=== PATIENT | female | born 1975 | race Caucasian/White ===

== ENCOUNTER → 2017-01-08 | Outpatient (CLI) | payer OTHER ==
[2017-01-08 16:07] LABS: HEMATOCRIT 36.5 % (36.0-47.0); HEMOGLOBIN 11.7 g/dL (12.0-15.5); HGB HCT DIFFERENCE -1.4; MEAN CORPUSCULAR HEMOGLOBIN 27.6 pg (27.0-33.4); MEAN CORPUSCULAR HGB CONC 32.1 g/dL (32.0-36.0); MEAN CORPUSCULAR VOLUME 86 fl (80-97); RED BLOOD COUNT 4.24 10^6/uL (3.72-5.28); RED CELL DISTRIBUTION WIDTH 15.4 % (11.5-14.0)
[2017-01-08 16:54] LABS: ALANINE AMINOTRANSFERASE 21 U/L (9-52); ALBUMIN 4.9 g/dL (3.5-5.0); ALKALINE PHOSPHATASE 66 U/L (38-126); ANION GAP 19 (5-19); ASPARTATE AMINO TRANSFERASE 20 U/L (14-36); BILIRUBIN,DIRECT 0.4 mg/dL (0.0-0.4); BILIRUBIN,TOTAL 0.7 mg/dL (0.2-1.3); BLOOD UREA NITROGEN 16 mg/dL (7-20); CALCIUM 9.3 mg/dL (8.4-10.2); CARBON DIOXIDE 21 mmol/L (22-30); CHLORIDE 107 mmol/L (98-107); CREATININE RESULT 0.57 mg/dL (0.52-1.25); GLUCOSE 88 mg/dL (75-110); LIPASE 191.8 U/L (23-300); POTASSIUM 3.9 mmol/L (3.6-5.0); SODIUM 147.1 mmol/L (137-145); TOTAL PROTEIN 8.3 g/dL (6.3-8.2)
== END ==
LOC: OD 15:03
PROVIDERS: ATTEND Obstetrics & Gynecology
DX: K91.3 Postprocedural intestinal obstruction (principal); R11.2 Nausea with vomiting, unspecified; E20.9 Hypoparathyroidism, unspecified
CPT/HCPCS: 36415; 80053; 83690; 84443; 85027

== ENCOUNTER → 2017-01-25 | Outpatient (CLI) | payer OTHER ==
[2017-01-25 18:41] LABS: HEMATOCRIT 36.4 % (36.0-47.0); HEMOGLOBIN 11.9 g/dL (12.0-15.5); HGB HCT DIFFERENCE -0.7; MEAN CORPUSCULAR HEMOGLOBIN 27.2 pg (27.0-33.4); MEAN CORPUSCULAR HGB CONC 32.6 g/dL (32.0-36.0); MEAN CORPUSCULAR VOLUME 84 fl (80-97); RED BLOOD COUNT 4.36 10^6/uL (3.72-5.28); WHITE BLOOD COUNT 5.2 10^3/uL (4.0-10.5)
[2017-01-25 19:07] LABS: ALANINE AMINOTRANSFERASE 24 U/L (9-52); ALBUMIN 4.7 g/dL (3.5-5.0); ALKALINE PHOSPHATASE 60 U/L (38-126); ANION GAP 16 (5-19); ASPARTATE AMINO TRANSFERASE 22 U/L (14-36); BILIRUBIN,DIRECT 0.4 mg/dL (0.0-0.4); BILIRUBIN,TOTAL 0.7 mg/dL (0.2-1.3); BLOOD UREA NITROGEN 9 mg/dL (7-20); CALCIUM 9.6 mg/dL (8.4-10.2); CARBON DIOXIDE 27 mmol/L (22-30); CHLORIDE 102 mmol/L (98-107); CREATININE RESULT 0.82 mg/dL (0.52-1.25); GLUCOSE 77 mg/dL (75-110); POTASSIUM 4.1 mmol/L (3.6-5.0); SODIUM 145.4 mmol/L (137-145); TOTAL PROTEIN 7.8 g/dL (6.3-8.2)
== END ==
LOC: OD 17:17
PROVIDERS: ATTEND Obstetrics & Gynecology
DX: K91.3 Postprocedural intestinal obstruction (principal); E89.0 Postprocedural hypothyroidism
CPT/HCPCS: 36415; 80053; 84443; 85027

== ENCOUNTER → 2017-03-21 | Outpatient (CLI) | payer OTHER ==
[2017-03-21 14:24] LABS: HEMATOCRIT 36.5 % (36.0-47.0); HEMOGLOBIN 11.9 g/dL (12.0-15.5); HGB HCT DIFFERENCE -0.8; MEAN CORPUSCULAR HEMOGLOBIN 28.6 pg (27.0-33.4); MEAN CORPUSCULAR HGB CONC 32.5 g/dL (32.0-36.0); MEAN CORPUSCULAR VOLUME 88 fl (80-97); RED BLOOD COUNT 4.14 10^6/uL (3.72-5.28); RED CELL DISTRIBUTION WIDTH 19.7 % (11.5-14.0)
[2017-03-21 14:47] LABS: ALANINE AMINOTRANSFERASE 26 U/L (9-52); ALBUMIN 4.2 g/dL (3.5-5.0); ALKALINE PHOSPHATASE 48 U/L (38-126); ANION GAP 10 (5-19); ASPARTATE AMINO TRANSFERASE 25 U/L (14-36); BILIRUBIN,DIRECT 0.2 mg/dL (0.0-0.4); BILIRUBIN,TOTAL 0.5 mg/dL (0.2-1.3); BLOOD UREA NITROGEN 13 mg/dL (7-20); CALCIUM 9.4 mg/dL (8.4-10.2); CARBON DIOXIDE 29 mmol/L (22-30); CHLORIDE 101 mmol/L (98-107); CREATININE RESULT 0.78 mg/dL (0.52-1.25); GLUCOSE 69 mg/dL (75-110); POTASSIUM 4.5 mmol/L (3.6-5.0); SODIUM 140.1 mmol/L (137-145); TOTAL PROTEIN 7.4 g/dL (6.3-8.2)
== END ==
LOC: OD 13:16
PROVIDERS: ATTEND Obstetrics & Gynecology
DX: Z98.84 Bariatric surgery status (principal); E03.9 Hypothyroidism, unspecified; E20.9 Hypoparathyroidism, unspecified
CPT/HCPCS: 36415; 80053; 84443; 85027

== ENCOUNTER 2017-04-10 11:06 | Emergency (ER) | payer OTHER ==
[2017-04-10] MEDS ORDERED: LIDOCAINE 5% (700 MG) TRANSDERMAL ADH..PATCH TP ONE (11:36)
[2017-04-10] MEDS: NORMAL SALINE 1000 ML 1,000 ML IV PRN ×2 (12:39→13:58)
[2017-04-10 13:37] LABS: ABSOLUTE EOSINOPHILS # (AUTO) 0.2 10^3/uL (0.0-0.6); ABSOLUTE LYMPHOCYTES (AUTO) 1.7 10^3/uL (0.5-4.7); ABSOLUTE MONOCYTES (AUTO) 0.4 10^3/uL (0.1-1.4); BASOPHILS % (AUTO) 0.4 % (0-2); EOSINOPHILS % (AUTO) 3.7 % (0-6); HEMATOCRIT 36.6 % (36.0-47.0); HEMOGLOBIN 11.6 g/dL (12.0-15.5); HGB HCT DIFFERENCE -1.8; LYMPHOCYTES % (AUTO) 32.1 % (13-45); MEAN CORPUSCULAR HEMOGLOBIN 29.5 pg (27.0-33.4); MEAN CORPUSCULAR HGB CONC 31.8 g/dL (32.0-36.0); MONOCYTES % (AUTO) 7.3 % (3-13); RED BLOOD COUNT 3.93 10^6/uL (3.72-5.28); RED CELL DISTRIBUTION WIDTH 18.8 % (11.5-14.0); SEGMENTED NEUTROPHILS % (AUTO) 56.5 % (42-78); WHITE BLOOD COUNT 5.4 10^3/uL (4.0-10.5)
[2017-04-10 13:39] LABS: MEAN CORPUSCULAR VOLUME 93 fl (80-97)
[2017-04-10 13:44] LABS: ALANINE AMINOTRANSFERASE 31 U/L (9-52); ALBUMIN 3.9 g/dL (3.5-5.0); ALKALINE PHOSPHATASE 48 U/L (38-126); ANION GAP 8 (5-19); ASPARTATE AMINO TRANSFERASE 14 U/L (14-36); BILIRUBIN,DIRECT 0.4 mg/dL (0.0-0.4); BILIRUBIN,TOTAL 0.6 mg/dL (0.2-1.3); BLOOD UREA NITROGEN 16 mg/dL (7-20); CALCIUM 8.7 mg/dL (8.4-10.2); CARBON DIOXIDE 26 mmol/L (22-30); CHLORIDE 108 mmol/L (98-107); CREATINE KINASE 43 U/L (30-135); CREATININE RESULT 0.94 mg/dL (0.52-1.25); GLUCOSE 82 mg/dL (75-110); MAGNESIUM 1.7 mg/dL (1.6-2.3); POTASSIUM 3.8 mmol/L (3.6-5.0); SODIUM 142.1 mmol/L (137-145); TOTAL PROTEIN 6.8 g/dL (6.3-8.2)
[2017-04-10 14:01] LABS: APPEARANCE,URINE CLEAR; BILIRUBIN,URINE NEGATIVE (NEGATIVE); GLUCOSE, URINE NEGATIVE (NEGATIVE); KETONES,URINE TRACE mg/dL (NEGATIVE); LEUKOCYTE ESTERASE,URINE NEGATIVE (NEGATIVE); NITRITE,URINE NEGATIVE (NEGATIVE); PROTEIN,URINE NEGATIVE (NEGATIVE); URINE SPECIFIC GRAVITY 1.008; UROBILINOGEN,URINE NEGATIVE mg/dL (<2.0)
[2017-04-10 14:13] LABS: THYROID STIMULATING HORMONE 2.49 uIU/mL (0.47-4.68)
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
[2017-04-10 14:55] LABS: URINE BARBITURATES SCREEN NEGATIVE; URINE METHADONE SCREEN NEGATIVE; URINE OPIATES LOW NEGATIVE; URINE PHENCYCLIDINE SCREEN NEGATIVE
[2017-04-10 15:14] VITALS: BP 169/115
--- NOTE | 2017-04-10 19:02 | EKG REPORT ---
SEVERITY:- BORDERLINE ECG - SINUS RHYTHM POOR R PROGRESSION ANYTERIOR LEADS. : Confirmed by: Geo Leonard MD 10-Apr-2017 19:01:56
== END 2017-04-10 14:54 | disposition home or self-care (01) ==
LOC: ER 11:06
DX: R20.9 Unspecified disturbances of skin sensation (principal); M25.512 Pain in left shoulder; E03.9 Hypothyroidism, unspecified; Z90.49 Acquired absence of other specified parts of digestive tract; Z90.710 Acquired absence of both cervix and uterus; Z88.2 Allergy status to sulfonamides; Z88.6 Allergy status to analgesic agent
CPT/HCPCS: 93005; 99285; 36415; 87086; 84439; 82550; 84702; 83735; 84443; 85025; 80053; 81001; 80307; 93010; L3650; J7030

== ENCOUNTER 2017-04-18 09:43 | Day surgery (SDC) | payer OTHER ==
[2017-04-13 08:52] LABS: APPEARANCE,URINE CLEAR; BILIRUBIN,URINE NEGATIVE (NEGATIVE); GLUCOSE, URINE NEGATIVE (NEGATIVE); KETONES,URINE NEGATIVE (NEGATIVE); LEUKOCYTE ESTERASE,URINE NEGATIVE (NEGATIVE); NITRITE,URINE NEGATIVE (NEGATIVE); PROTEIN,URINE NEGATIVE (NEGATIVE); URINE SPECIFIC GRAVITY 1.012; UROBILINOGEN,URINE NEGATIVE mg/dL (<2.0)
[2017-04-13 08:57] LABS: HEMATOCRIT 37.8 % (36.0-47.0); HGB HCT DIFFERENCE -1.8; MEAN CORPUSCULAR HEMOGLOBIN 29.5 pg (27.0-33.4); MEAN CORPUSCULAR HGB CONC 31.8 g/dL (32.0-36.0); MEAN CORPUSCULAR VOLUME 93 fl (80-97); RED BLOOD COUNT 4.08 10^6/uL (3.72-5.28)
[2017-04-13 08:58] LABS: ANION GAP 12 (5-19); BLOOD UREA NITROGEN 13 mg/dL (7-20); CALCIUM 8.5 mg/dL (8.4-10.2); CARBON DIOXIDE 23 mmol/L (22-30); CHLORIDE 108 mmol/L (98-107); GLUCOSE 83 mg/dL (75-110); POTASSIUM 4.1 mmol/L (3.6-5.0); SODIUM 142.5 mmol/L (137-145)
[2017-04-13 09:29] LABS: ANISOCYTOSIS 2+; BASOPHILS % (MANUAL) 0 % (0-2); EOSINOPHILS % (MANUAL) 6 % (0-6); HYPOCHROMASIA SLIGHT; LYMPHOCYTES % (MANUAL) 45 % (13-45); NUCLEATED RED BLOOD CELLS 1 /100 WBC (0); OVALOCYTES 2+; PLATELET CLUMPS PRESENT; POIKILOCYTOSIS 2+; POLYCHROMASIA SLIGHT; ROULEAUX 1+; TOTAL CELLS COUNTED 100; TOXIC GRANULATION 1+
--- NOTE | 2017-04-13 10:17 | RADIOLOGY REPORT (SQ) ---
EXAM DESCRIPTION: CHEST PA/LATERAL COMPLETED DATE/TIME: 04/13/2017 9:57 am REASON FOR STUDY: PRE-OP COMPARISON: 07/19/2016 EXAM PARAMETERS: NUMBER OF VIEWS: two views TECHNIQUE: Digital Frontal and Lateral radiographic views of the chest acquired. RADIATION DOSE: NA LIMITATIONS: none FINDINGS: LUNGS AND PLEURA: No opacities, masses or pneumothorax. No pleural effusion. MEDIASTINUM AND HILAR STRUCTURES: No masses or contour abnormalities. HEART AND VASCULAR STRUCTURES: Heart normal size. No evidence for failure. BONES: No acute findings. HARDWARE: None in the chest. OTHER: No other significant finding. IMPRESSION: NO SIGNIFICANT RADIOGRAPHIC FINDING IN THE CHEST. TECHNICAL DOCUMENTATION: JOB ID: [id number] [employer]- All Rights Reserved
--- NOTE | 2017-04-13 20:14 | EKG REPORT ---
SEVERITY:- NORMAL ECG - SINUS RHYTHM : Confirmed by: Geo Leonard MD 13-Apr-2017 20:14:41
[~2017-04-18 09:43] MED LIST: CEFAZOLIN 2 GM/D5W RTU 2 GM/50 ML RTUPB IV PRN; LACTATED RINGERS 1000 ML IV PRN; LIDOCAINE 0.5% INJ-PF (5 MG/ML) 50 ML SDV SUBCUT PRN
[2017-04-18] MEDS ORDERED: BUPIVACAINE HCL 0.5%-EPI 1:200000 INJ/PF 30 ML VIAL ONE (10:39)
[2017-04-18] MEDS ORDERED: FAMOTIDINE INJ/PF 20 MG/2 ML SDV IV ONE (10:40)
[2017-04-18] MEDS ORDERED: FENTANYL CITRATE INJ/PF 250 MCG/5 ML AMPULE ONE (12:09)
[2017-04-18] MEDS ORDERED: PROPOFOL INJ 200 MG/20 ML VIAL IV ONE (12:10)
[2017-04-18] MEDS ORDERED: MIDAZOLAM 2 MG/2 ML INJ ONE (12:10)
[2017-04-18] MEDS ORDERED: IBUPROFEN INJ 800 MG/8 ML VIAL IV ONE (12:11)
[2017-04-18] MEDS ORDERED: HYDROMORPHONE HCL INJ/PF 2 MG/ML AMPULE ONE (12:11)
[2017-04-18] MEDS ORDERED: DIPHENHYDRAMINE HCL 50 MG/ML VIAL IV PRN (13:01)
[2017-04-18] MEDS ORDERED: OXYCODONE-ACETAMINOPHEN 5-325 MG TABLET PO PRN ×2 (13:01)
[2017-04-18] MEDS ORDERED: FENTANYL CITRATE INJ/PF 100 MCG/2 ML AMPUL IV PRN ×3 (13:01)
[2017-04-18] MEDS ORDERED: MEPERIDINE HCL/PF INJ 25 MG/1 ML DISP.SYRIN IV PRN (13:01)
[2017-04-18] MEDS ORDERED: PROMETHAZINE HCL INJ 25 MG/1 ML VIAL IV PRN (13:01)
--- NOTE | 2017-04-18 13:14 | Operative Report ---
Operative Report DATE OF SURGERY: 04/18/17 PREOPERATIVE DIAGNOSIS: Left rotator cuff tear OPERATION: Left acromioplasty and left rotator cuff repair SURGEON: GARRETT MEEHAN ANESTHESIA: GA TISSUE REMOVED OR ALTERED: Bone and soft tissue to pathology ESTIMATED BLOOD LOSS: 75 PROCEDURE: Patient beachchair position on the operating table the left upper extremity and forequarter prepped and draped in sterile fashion. A 1 cm longitudinal incision was made at the junction of the middle and anterior thirds of the deltoid and sharp dissection was carried incision down to the fascia. The fascia is divided the underlying deltoid and spread in the direction of its fibers. The acromion is visualized and a an acromioplasty was performed with an oscillating saw. Subsequently the subacromial bursa is debrided sharply. The underlying rotator cuff tears easily identified. The edges are debrided. A 5.5 mm suture anchor was then placed into the landing zone for the rotator cuff and the 4 sutures that emanate from it are used to repair the rotator cuff. This point the wound is irrigated. Hemostasis obtained with electrocautery. Closed in layers using Vicryl followed by vince. A sterile compressive dressing and shoulder immobilizer applied and the patient's return to the PACU in satisfactory condition.
[2017-04-18] MEDS: FENTANYL CITRATE INJ/PF 100 MCG/2 ML AMPUL ONE ×2 (13:40→13:47)
[2017-04-18] MEDS ORDERED: DEXAMETHASONE SOD PHOSPHATE INJ 4 MG/1 ML VIAL ONE (14:37)
[2017-04-18] MEDS ORDERED: SUCCINYLCHOLINE CHLORIDE INJ 200 MG/10 ML VIAL ONE (14:37)
[2017-04-18] MEDS ORDERED: ONDANSETRON HCL INJ/PF 4 MG/2 ML SDV ONE (14:37)
[2017-04-18] MEDS ORDERED: ONDANSETRON HCL INJ/PF 4 MG/2 ML SDV IV PRN (15:26)
[2017-04-18] MEDS ORDERED: OXYCODONE HCL IR 5 MG TABLET PO PRN ×2 (15:26→16:00)
[2017-04-18] MEDS ORDERED: ZOLPIDEM TARTRATE PO PRN (15:27)
[2017-04-18] MEDS ORDERED: ONDANSETRON 4 MG TAB.RAPDIS PO PRN (15:39)
[2017-04-18] MEDS ORDERED: ZOLPIDEM TARTRATE 5 MG TABLET PO PRN (15:54)
[2017-04-18 17:56] VITALS: BP 173/102
[2017-04-18] MEDS ORDERED: CALCIUM ACETATE 667 MG CAPSULE PO SCH (18:00)
[2017-04-18] MEDS ORDERED: CALCIUM ACETATE 667 MG PO SCH (18:00)
[2017-04-18] MEDS ORDERED: CALCITRIOL 0.25 MCG CAPSULE PO SCH (18:00)
[2017-04-18] MEDS ORDERED: AMITRIPTYLINE HCL 25 MG TABLET PO SCH (22:00)
[2017-04-18] MEDS ORDERED: QUETIAPINE FUMARATE 25 MG TABLET PO SCH (22:00)
[2017-04-19] MEDS ORDERED: LEVOTHYROXINE SODIUM 0.1 MG TABLET PO SCH (08:00)
[2017-04-19] MEDS ORDERED: LEVOTHYROXINE SODIUM 0.075 MG TABLET PO SCH (08:00)
[2017-04-19] MEDS ORDERED: (PENDING PHARMACY ID) (Levothyroxine Sodium [Synthroid] 175 MCG) PO SCH (10:00)
== END 2017-04-18 17:40 | disposition home or self-care (01) ==
LOC: OROUT 09:43 → 4W 15:15 → OROUT 17:40
PROVIDERS: ATTEND Orthopaedic Surgery
PROC: 0LQ20ZZ Repair Left Shoulder Tendon, Open Approach (ICD-10-PCS; principal; 2017-04-18 11:45)
DX: M75.102 Unspecified rotator cuff tear or rupture of left shoulder, not specified as traumatic (principal); M25.512 Pain in left shoulder; E06.3 Autoimmune thyroiditis; F31.9 Bipolar disorder, unspecified; G89.29 Other chronic pain; E89.0 Postprocedural hypothyroidism; F17.210 Nicotine dependence, cigarettes, uncomplicated; I10 Essential (primary) hypertension; Z86.14 Personal history of Methicillin resistant Staphylococcus aureus infection; Z79.899 Other long term (current) drug therapy; Z88.5 Allergy status to narcotic agent; Z88.8 Allergy status to other drugs, medicaments and biological substances; Z88.2 Allergy status to sulfonamides
CPT/HCPCS: 93005; 36415; 85025; 80048; 81001; 88304 ×2; 71020; 93010; 23410; L3650; C1713; J2250; J3490 ×2; J1100; S0119; J3010 ×2; J1170; J0330; J2405; J2704; S0028; J0690; J1741; 1630

== ENCOUNTER → 2017-05-11 | Outpatient (CLI) | payer OTHER ==
[2017-05-11 13:22] LABS: HEMOGLOBIN 11.8 g/dL (12.0-15.5); HGB HCT DIFFERENCE 0.4; MEAN CORPUSCULAR HEMOGLOBIN 31.4 pg (27.0-33.4); MEAN CORPUSCULAR HGB CONC 33.7 g/dL (32.0-36.0); MEAN CORPUSCULAR VOLUME 93 fl (80-97); RED BLOOD COUNT 3.76 10^6/uL (3.72-5.28); RED CELL DISTRIBUTION WIDTH 15.6 % (11.5-14.0); WHITE BLOOD COUNT 6.2 10^3/uL (4.0-10.5)
[2017-05-11 13:44] LABS: ALANINE AMINOTRANSFERASE 28 U/L (9-52); ALBUMIN 4.1 g/dL (3.5-5.0); ALKALINE PHOSPHATASE 58 U/L (38-126); ANION GAP 11 (5-19); ASPARTATE AMINO TRANSFERASE 19 U/L (14-36); BILIRUBIN,DIRECT 0.4 mg/dL (0.0-0.4); BILIRUBIN,TOTAL 0.6 mg/dL (0.2-1.3); BLOOD UREA NITROGEN 10 mg/dL (7-20); CALCIUM 8.6 mg/dL (8.4-10.2); CARBON DIOXIDE 24 mmol/L (22-30); CHLORIDE 101 mmol/L (98-107); CREATININE RESULT 0.72 mg/dL (0.52-1.25); GLUCOSE 81 mg/dL (75-110); SODIUM 135.9 mmol/L (137-145); TOTAL PROTEIN 6.8 g/dL (6.3-8.2)
== END ==
LOC: OD 12:47
PROVIDERS: ATTEND Obstetrics & Gynecology
DX: E03.9 Hypothyroidism, unspecified (principal); E20.9 Hypoparathyroidism, unspecified
CPT/HCPCS: 36415; 80053; 84443; 85027

== ENCOUNTER → 2017-05-15 | Outpatient (CLI) | payer OTHER | LOC: OD 17:10 | PROVIDERS: ATTEND Obstetrics & Gynecology | DX: K29.70 Gastritis, unspecified, without bleeding (principal) | CPT/HCPCS: 36415; 86677 ==

== ENCOUNTER → 2017-05-28 | Outpatient (CLI) | payer OTHER ==
[2017-05-28 13:41] LABS: HEMATOCRIT 34.5 % (36.0-47.0); HEMOGLOBIN 11.8 g/dL (12.0-15.5); HGB HCT DIFFERENCE 0.9; MEAN CORPUSCULAR HEMOGLOBIN 31.9 pg (27.0-33.4); MEAN CORPUSCULAR HGB CONC 34.1 g/dL (32.0-36.0); MEAN CORPUSCULAR VOLUME 94 fl (80-97); RED BLOOD COUNT 3.68 10^6/uL (3.72-5.28)
[2017-05-28 14:05] LABS: ALANINE AMINOTRANSFERASE 23 U/L (9-52); ALBUMIN 3.9 g/dL (3.5-5.0); ALKALINE PHOSPHATASE 39 U/L (38-126); ANION GAP 10 (5-19); ASPARTATE AMINO TRANSFERASE 21 U/L (14-36); BILIRUBIN,DIRECT 0.3 mg/dL (0.0-0.4); BILIRUBIN,TOTAL 0.4 mg/dL (0.2-1.3); BLOOD UREA NITROGEN 11 mg/dL (7-20); CALCIUM 8.2 mg/dL (8.4-10.2); CARBON DIOXIDE 29 mmol/L (22-30); CHLORIDE 103 mmol/L (98-107); CREATININE RESULT 0.71 mg/dL (0.52-1.25); GLUCOSE 69 mg/dL (75-110); POTASSIUM 4.1 mmol/L (3.6-5.0); SODIUM 142.2 mmol/L (137-145); TOTAL PROTEIN 6.2 g/dL (6.3-8.2)
== END ==
LOC: OD 11:59
PROVIDERS: ATTEND Obstetrics & Gynecology
DX: I10 Essential (primary) hypertension (principal); E07.9 Disorder of thyroid, unspecified; E89.0 Postprocedural hypothyroidism; Z98.84 Bariatric surgery status
CPT/HCPCS: 36415; 80053; 84443; 85027

== ENCOUNTER → 2017-06-13 | Outpatient (CLI) | payer OTHER ==
[2017-06-13 13:34] LABS: ALANINE AMINOTRANSFERASE 22 U/L (9-52); ALBUMIN 4.4 g/dL (3.5-5.0); ALKALINE PHOSPHATASE 47 U/L (38-126); ANION GAP 10 (5-19); ASPARTATE AMINO TRANSFERASE 21 U/L (14-36); BILIRUBIN,DIRECT 0.3 mg/dL (0.0-0.4); BILIRUBIN,TOTAL 0.4 mg/dL (0.2-1.3); BLOOD UREA NITROGEN 10 mg/dL (7-20); CALCIUM 9.2 mg/dL (8.4-10.2); CARBON DIOXIDE 24 mmol/L (22-30); CHLORIDE 108 mmol/L (98-107); CREATININE RESULT 0.69 mg/dL (0.52-1.25); GLUCOSE 86 mg/dL (75-110); HEMOGLOBIN 12.7 g/dL (12.0-15.5); HGB HCT DIFFERENCE 3.1; MEAN CORPUSCULAR HEMOGLOBIN 33.8 pg (27.0-33.4); MEAN CORPUSCULAR HGB CONC 36.4 g/dL (32.0-36.0); MEAN CORPUSCULAR VOLUME 93 fl (80-97); RED BLOOD COUNT 3.78 10^6/uL (3.72-5.28); RED CELL DISTRIBUTION WIDTH 13.8 % (11.5-14.0); SODIUM 142.4 mmol/L (137-145); TOTAL PROTEIN 6.9 g/dL (6.3-8.2); WHITE BLOOD COUNT 3.9 10^3/uL (4.0-10.5)
== END ==
LOC: OD 12:08
PROVIDERS: ATTEND Obstetrics & Gynecology
DX: I10 Essential (primary) hypertension (principal); E07.9 Disorder of thyroid, unspecified; Z98.84 Bariatric surgery status; E89.0 Postprocedural hypothyroidism
CPT/HCPCS: 36415; 80053; 84443; 85027

== ENCOUNTER → 2017-08-16 | Outpatient (CLI) | payer OTHER ==
[2017-08-16 19:53] LABS: ALANINE AMINOTRANSFERASE 30 U/L (9-52); ALBUMIN 4.5 g/dL (3.5-5.0); ALKALINE PHOSPHATASE 38 U/L (38-126); ANION GAP 13 (5-19); ASPARTATE AMINO TRANSFERASE 24 U/L (14-36); BILIRUBIN,DIRECT 0.3 mg/dL (0.0-0.4); BILIRUBIN,TOTAL 0.5 mg/dL (0.2-1.3); BLOOD UREA NITROGEN 16 mg/dL (7-20); CALCIUM 8.9 mg/dL (8.4-10.2); CARBON DIOXIDE 24 mmol/L (22-30); CHLORIDE 105 mmol/L (98-107); CREATININE RESULT 0.77 mg/dL (0.52-1.25); GLUCOSE 77 mg/dL (75-110); POTASSIUM 3.9 mmol/L (3.6-5.0); SODIUM 141.8 mmol/L (137-145); TOTAL PROTEIN 6.9 g/dL (6.3-8.2)
== END ==
LOC: OD 18:07
PROVIDERS: ATTEND Obstetrics & Gynecology
DX: E89.0 Postprocedural hypothyroidism (principal); I10 Essential (primary) hypertension; E07.9 Disorder of thyroid, unspecified; Z98.84 Bariatric surgery status
CPT/HCPCS: 36415; 80053; 84443

== ENCOUNTER → 2017-10-08 | Outpatient (CLI) | payer OTHER ==
[2017-10-08 12:07] LABS: ABSOLUTE EOSINOPHILS # (AUTO) 0.1 10^3/uL (0.0-0.6); ABSOLUTE LYMPHOCYTES (AUTO) 0.9 10^3/uL (0.5-4.7); ABSOLUTE MONOCYTES (AUTO) 0.3 10^3/uL (0.1-1.4); ABSOLUTE NEUT (AUTO) 3.2 10^3/uL (1.7-8.2); BASOPHILS % (AUTO) 0.2 % (0-2); EOSINOPHILS % (AUTO) 2.3 % (0-6); HEMATOCRIT 42.3 % (36.0-47.0); HEMOGLOBIN 14.6 g/dL (12.0-15.5); LYMPHOCYTES % (AUTO) 19.6 % (13-45); MEAN CORPUSCULAR HGB CONC 34.5 g/dL (32.0-36.0); MEAN CORPUSCULAR VOLUME 96 fl (80-97); MONOCYTES % (AUTO) 6.8 % (3-13); PLATELET COUNT 211 10^3/uL (150-450); RED BLOOD COUNT 4.43 10^6/uL (3.72-5.28); RED CELL DISTRIBUTION WIDTH 13.6 % (11.5-14.0); SEGMENTED NEUTROPHILS % (AUTO) 71.1 % (42-78); TOTAL CELLS COUNTED % (AUTO) 100 %; WHITE BLOOD COUNT 4.6 10^3/uL (4.0-10.5)
[2017-10-08 12:17] LABS: ALANINE AMINOTRANSFERASE 27 U/L (9-52); ALKALINE PHOSPHATASE 58 U/L (38-126); ANION GAP 13 (5-19); ASPARTATE AMINO TRANSFERASE 22 U/L (14-36); BILIRUBIN,DIRECT 0.3 mg/dL (0.0-0.4); BILIRUBIN,TOTAL 0.5 mg/dL (0.2-1.3); BLOOD UREA NITROGEN 6 mg/dL (7-20); CALCIUM 9.6 mg/dL (8.4-10.2); CARBON DIOXIDE 31 mmol/L (22-30); CHLORIDE 103 mmol/L (98-107); GLUCOSE 95 mg/dL (75-110); POTASSIUM 3.7 mmol/L (3.6-5.0); SODIUM 146.8 mmol/L (137-145)
--- NOTE | 2017-10-08 14:28 | RADIOLOGY REPORT (SQ) ---
EXAM DESCRIPTION: SHOULDER LEFT 2 OR MORE VIEWS COMPLETED DATE/TIME: 10/08/2017 12:06 pm REASON FOR STUDY: PAIN IN LEFT SHOULDER M25.512 PAIN IN LEFT SHOULDER COMPARISON: None. NUMBER OF VIEWS: Three view. TECHNIQUE: Internal rotation, external rotation, and Y view images acquired of the left shoulder. LIMITATIONS: None. FINDINGS: MINERALIZATION: Normal. BONES: No acute fracture or dislocation. No worrisome bone lesions. No significant osteophytes. GLENOHUMERAL JOINT: No significant findings. ACROMIOCLAVICULAR JOINT: No large osteophytes. SOFT TISSUES: No calcifications. VISUALIZED RIBS, SPINE, AND LUNG: No other significant finding. OTHER: No other significant finding. IMPRESSION: NEGATIVE STUDY OF THE LEFT SHOULDER. NO EXPLANATION FOR PAIN. TECHNICAL DOCUMENTATION: JOB ID: [id number] [employer]- All Rights Reserved
== END ==
LOC: OD 11:18
PROVIDERS: ATTEND Obstetrics & Gynecology
DX: M25.512 Pain in left shoulder (principal); E03.9 Hypothyroidism, unspecified; E20.9 Hypoparathyroidism, unspecified; K52.9 Noninfective gastroenteritis and colitis, unspecified
CPT/HCPCS: 36415; 80053; 84443; 85025

== ENCOUNTER → 2017-10-16 | Day surgery (SDC) | payer OTHER ==
[~2017-10-16] MED LIST changes: -CEFAZOLIN 2 GM/D5W RTU 2 GM/50 ML RTUPB IV PRN; -LACTATED RINGERS 1000 ML IV PRN; -LIDOCAINE 0.5% INJ-PF (5 MG/ML) 50 ML SDV SUBCUT PRN; +LIDOCAINE 1% INJ-PF (10 MG/ML) 30 ML SDV ONE
--- NOTE | 2017-10-16 13:47 | RADIOLOGY REPORT (SQ) ---
EXAM DESCRIPTION: ARTHRO SHOULDER INJECTION COMPLETED DATE/TIME: 10/16/2017 11:17 am REASON FOR STUDY: M75.122 COMPLETE ROTATR-CUFF TEAR/RUPTR OF LEFT SHOULDER, NOT TRAUMA M75.122 COMP LETE ROTATR-CUFF TEAR/RUPTR OF LEFT SHOULDER, NO COMPARISON: Left shoulder films 10/08/2014 FLUOROSCOPY TIME: 3 seconds 1 digital radiographic images saved to PACS. LIMITATIONS: None. PROCEDURE: Procedure, risks, benefits and alternatives explained to patient who then gave written co nsent. The posterior left shoulder was marked and a time out was called for correct procedure verific ation. Posterior entry site marked using fluoroscopic guidance. Shoulder prepped and draped using s terile technique. Local anesthesia achieved using 7 mL of 1% lidocaine injection. 22 gauge spinal n eedle introduced into the joint space under direct fluoroscopic visualization. Non-ionic contrast ins tilled to confirm intra-articular position. Dilute gadolinium solution then injected. Needle removed and entry site covered with sterile bandage. No immediate complications noted. TECHNIQUE: Digital images acquired during fluoroscopy and stored on PACS. Patient immediately take n to the MR suite for additional imaging. INJECTION LOCATION: Left posterior glenohumeral joint CONTRAST TYPE AND AMOUNT: 1 mL of Isovue-300 was injected to confirm intra-articular needle placement followed by 12 mL of dilute ProHance gadolinium for MR arthrogram IMPRESSION: SUCCESSFUL NEEDLE PLACEMENT AND INJECTION FOR LEFT SHOULDER MR ARTHROGRAM USING POSTERIO R APPROACH. COMMENT: Quality ID 145: Final reports for procedures using fluoroscopy that document radiation exp osure indices, or exposure time and number of fluorographic images (if radiation exposure indices are not available) TECHNICAL DOCUMENTATION: JOB ID: [id number] [employer]- All Rights Reserved
--- NOTE | 2017-10-16 14:18 | RADIOLOGY REPORT (SQ) ---
EXAM DESCRIPTION: MRI LT UPPER JOINT WITH COMPLETED DATE/TIME: 10/16/2017 12:17 pm REASON FOR STUDY: M75.122 COMPLETE ROTATR-CUFF TEAR/RUPTR OF LEFT SHOULDER, NOT TRAUMA M75.122 COMP LETE ROTATR-CUFF TEAR/RUPTR OF LEFT SHOULDER, NO COMPARISON: Left shoulder films TECHNIQUE: Left shoulder post arthrogram MRI images acquired and stored on PACS. Multiplanar imaging to include fat sensitive sequences such as T1, water sensitive sequences such as FST2/STIR, cartilag e sensitive sequences such as FSPD/gradient-echo sequences. LIMITATIONS: None. FINDINGS: BONE MARROW AND CORTEX: Minimal subcortical edema in the posterior aspect left humeral hea d greater tuberosity. JOINT OR BURSAL EFFUSION: Intra-articular gadolinium is present without leakage of contrast into the subacromial/ subdeltoid bursa. GLENO-HUMERAL ARTICULATION: Normal articulation. No subluxation. No cystic change. No osteophytes or cartilage loss. ACROMION AND AC JOINT: Type 2 acromion with mild acromioclavicular joint bony spurring and synovial thickening. This minimally flattens the superior edge of the supraspinatus muscle and tendon. ROTATOR CUFF AND INTERVAL: Remote prior repair of the distal infraspinatus tendon, with a screw ancho ring infraspinatus tendon on sagittal image 5. Remainder of the infraspinatus is been with high sign al along its undersurface from tendinopathy. Supraspinatus, subscapularis are intact. No rotator interval tear. No rotator interval thickening to suggest adhesive capsulitis. LABRUM AND BICEPS LABRAL COMPLEX: Intra-articular long head biceps tendon is normal in signal. The re is mild irregularity at its attachment to the labrum with a small superior labral tear, no paralab ral cyst. This is best shown on axial images 5-7, sagittal image 11 and coronal image 10. REMAINDER OF LABRUM AND IGHL : No gross tear or paralabral cyst formation. Labral evaluation is less than optimal without joint distention. No thickening of IGHL to suggest adhesive capsulitis. PERIARTICULAR AND ADJACENT SOFT TISSUES: No masses or abnormal nodes. OTHER: No other significant finding. IMPRESSION: Infraspinatus tendinopathy and old repair. Tiny superior labral tear at the intra-articular long head biceps tendon attachment Mild bony spurring and synovial overgrowth at the AC joint. TECHNICAL DOCUMENTATION: JOB ID: [id number] [employer]- All Rights Reserved
== END ==
LOC: RAD 10:22
PROVIDERS: ATTEND Orthopaedic Surgery
PROC: BP09ZZZ Plain Radiography of Left Shoulder (ICD-10-PCS; principal; 2017-10-16)
DX: M75.122 Complete rotator cuff tear or rupture of left shoulder, not specified as traumatic (principal); S43.432A Superior glenoid labrum lesion of left shoulder, initial encounter; X58.XXXA Exposure to other specified factors, initial encounter; M75.92 Shoulder lesion, unspecified, left shoulder
CPT/HCPCS: 73222; 77002; 23350; A9576; J3490

== ENCOUNTER → 2017-11-13 | Outpatient (CLI) | payer OTHER ==
[2017-11-13 16:05] LABS: ABSOLUTE EOSINOPHILS # (AUTO) 0.1 10^3/uL (0.0-0.6); ABSOLUTE MONOCYTES (AUTO) 0.3 10^3/uL (0.1-1.4); ABSOLUTE NEUT (AUTO) 2.3 10^3/uL (1.7-8.2); BASOPHILS % (AUTO) 0.6 % (0-2); EOSINOPHILS % (AUTO) 3.1 % (0-6); HEMATOCRIT 37.4 % (36.0-47.0); LYMPHOCYTES % (AUTO) 41.5 % (13-45); MEAN CORPUSCULAR HEMOGLOBIN 33.5 pg (27.0-33.4); MEAN CORPUSCULAR HGB CONC 34.8 g/dL (32.0-36.0); MEAN CORPUSCULAR VOLUME 96 fl (80-97); MONOCYTES % (AUTO) 6.5 % (3-13); PLATELET COUNT 226 10^3/uL (150-450); RED BLOOD COUNT 3.88 10^6/uL (3.72-5.28); RED CELL DISTRIBUTION WIDTH 12.9 % (11.5-14.0); SEGMENTED NEUTROPHILS % (AUTO) 48.3 % (42-78); TOTAL CELLS COUNTED % (AUTO) 100 %; WHITE BLOOD COUNT 4.7 10^3/uL (4.0-10.5)
[2017-11-13 16:21] LABS: ALANINE AMINOTRANSFERASE 15 U/L (9-52); ALKALINE PHOSPHATASE 38 U/L (38-126); ANION GAP 9 (5-19); ASPARTATE AMINO TRANSFERASE 19 U/L (14-36); BILIRUBIN,DIRECT 0.4 mg/dL (0.0-0.4); BILIRUBIN,TOTAL 0.5 mg/dL (0.2-1.3); BLOOD UREA NITROGEN 10 mg/dL (7-20); CALCIUM 8.4 mg/dL (8.4-10.2); CARBON DIOXIDE 25 mmol/L (22-30); CHLORIDE 105 mmol/L (98-107); GLUCOSE 108 mg/dL (75-110); POTASSIUM 4.1 mmol/L (3.6-5.0); SODIUM 139.2 mmol/L (137-145); TOTAL PROTEIN 6.4 g/dL (6.3-8.2)
== END ==
LOC: OD 14:28
PROVIDERS: ATTEND Obstetrics & Gynecology
DX: E83.51 Hypocalcemia (principal); D64.9 Anemia, unspecified; Z51.81 Encounter for therapeutic drug level monitoring; Z79.899 Other long term (current) drug therapy
CPT/HCPCS: 36415; 80053; 84443; 85025

== ENCOUNTER → 2018-01-05 | Outpatient (CLI) | payer OTHER ==
[2018-01-05 12:42] LABS: HEMATOCRIT 42.6 % (36.0-47.0); HEMOGLOBIN 14.7 g/dL (12.0-15.5); MEAN CORPUSCULAR HEMOGLOBIN 32.7 pg (27.0-33.4); MEAN CORPUSCULAR HGB CONC 34.6 g/dL (32.0-36.0); MEAN CORPUSCULAR VOLUME 95 fl (80-97); PLATELET COUNT 257 10^3/uL (150-450); RED BLOOD COUNT 4.51 10^6/uL (3.72-5.28); RED CELL DISTRIBUTION WIDTH 12.7 % (11.5-14.0); WHITE BLOOD COUNT 6.1 10^3/uL (4.0-10.5)
[2018-01-05 13:02] LABS: ALANINE AMINOTRANSFERASE 25 U/L (9-52); ALBUMIN 4.5 g/dL (3.5-5.0); ALKALINE PHOSPHATASE 36 U/L (38-126); ANION GAP 10 (5-19); ASPARTATE AMINO TRANSFERASE 24 U/L (14-36); BILIRUBIN,DIRECT 0.4 mg/dL (0.0-0.4); BILIRUBIN,TOTAL 0.7 mg/dL (0.2-1.3); BLOOD UREA NITROGEN 17 mg/dL (7-20); CALCIUM 9.6 mg/dL (8.4-10.2); CARBON DIOXIDE 25 mmol/L (22-30); CHLORIDE 102 mmol/L (98-107); GLUCOSE 89 mg/dL (75-110); POTASSIUM 4.9 mmol/L (3.6-5.0); SODIUM 137.2 mmol/L (137-145); TOTAL PROTEIN 7.3 g/dL (6.3-8.2)
== END ==
LOC: OD 12:00
PROVIDERS: ATTEND Obstetrics & Gynecology
DX: I10 Essential (primary) hypertension (principal); E07.9 Disorder of thyroid, unspecified; E89.0 Postprocedural hypothyroidism; Z98.84 Bariatric surgery status
CPT/HCPCS: 36415; 80053; 84443; 85027

== ENCOUNTER → 2018-02-04 | Outpatient (CLI) | payer OTHER ==
[2018-02-04 18:23] LABS: HEMATOCRIT 39.9 % (36.0-47.0); HEMOGLOBIN 13.5 g/dL (12.0-15.5); MEAN CORPUSCULAR HEMOGLOBIN 32.3 pg (27.0-33.4); MEAN CORPUSCULAR HGB CONC 33.9 g/dL (32.0-36.0); MEAN CORPUSCULAR VOLUME 95 fl (80-97); PLATELET COUNT 179 10^3/uL (150-450); RED BLOOD COUNT 4.19 10^6/uL (3.72-5.28); RED CELL DISTRIBUTION WIDTH 12.8 % (11.5-14.0)
[2018-02-04 18:42] LABS: ALANINE AMINOTRANSFERASE 21 U/L (9-52); ALBUMIN 4.1 g/dL (3.5-5.0); ALKALINE PHOSPHATASE 48 U/L (38-126); ANION GAP 9 (5-19); ASPARTATE AMINO TRANSFERASE 23 U/L (14-36); BILIRUBIN,DIRECT 0.3 mg/dL (0.0-0.4); BILIRUBIN,TOTAL 0.6 mg/dL (0.2-1.3); BLOOD UREA NITROGEN 8 mg/dL (7-20); CALCIUM 9.1 mg/dL (8.4-10.2); CARBON DIOXIDE 31 mmol/L (22-30); CHLORIDE 104 mmol/L (98-107); GLUCOSE 85 mg/dL (75-110); POTASSIUM 4.2 mmol/L (3.6-5.0); SODIUM 143.5 mmol/L (137-145); TOTAL PROTEIN 6.7 g/dL (6.3-8.2)
== END ==
LOC: OD 17:15
PROVIDERS: ATTEND Obstetrics & Gynecology
DX: E07.9 Disorder of thyroid, unspecified (principal); E89.0 Postprocedural hypothyroidism; Z98.84 Bariatric surgery status
CPT/HCPCS: 36415; 80053; 84443; 85027

== ENCOUNTER → 2018-03-05 | Outpatient (CLI) | payer OTHER ==
[2018-03-05 14:18] LABS: HEMATOCRIT 39.8 % (36.0-47.0); HEMOGLOBIN 13.5 g/dL (12.0-15.5); MEAN CORPUSCULAR HEMOGLOBIN 32.5 pg (27.0-33.4); MEAN CORPUSCULAR VOLUME 96 fl (80-97); RED BLOOD COUNT 4.17 10^6/uL (3.72-5.28); RED CELL DISTRIBUTION WIDTH 13.3 % (11.5-14.0)
[2018-03-05 14:33] LABS: ALANINE AMINOTRANSFERASE 24 U/L (9-52); ALBUMIN 4.4 g/dL (3.5-5.0); ALKALINE PHOSPHATASE 36 U/L (38-126); ANION GAP 9 (5-19); ASPARTATE AMINO TRANSFERASE 26 U/L (14-36); BILIRUBIN,DIRECT 0.4 mg/dL (0.0-0.4); BILIRUBIN,TOTAL 0.7 mg/dL (0.2-1.3); BLOOD UREA NITROGEN 10 mg/dL (7-20); CALCIUM 9.4 mg/dL (8.4-10.2); CARBON DIOXIDE 29 mmol/L (22-30); CHLORIDE 106 mmol/L (98-107); GLUCOSE 93 mg/dL (75-110); POTASSIUM 4.4 mmol/L (3.6-5.0); SODIUM 143.7 mmol/L (137-145); TOTAL PROTEIN 7.1 g/dL (6.3-8.2)
[2018-03-05 14:38] LABS: PLATELET COUNT 155 10^3/uL (150-450)
== END ==
LOC: OD 13:02
PROVIDERS: ATTEND Obstetrics & Gynecology
DX: I10 Essential (primary) hypertension (principal); E07.9 Disorder of thyroid, unspecified; E89.0 Postprocedural hypothyroidism; Z98.84 Bariatric surgery status
CPT/HCPCS: 36415; 80053; 84443; 85027

== ENCOUNTER 2018-08-19 11:14 | Day surgery (SDC) | payer OTHER ==
[~2018-08-19 11:14] MED LIST changes: -LIDOCAINE 1% INJ-PF (10 MG/ML) 30 ML SDV ONE; +PROPOFOL INJ 200 MG/20 ML VIAL IV ONE
[2018-08-19] MEDS ORDERED: LIDOCAINE 1% INJ-PF (10 MG/ML) 30 ML SDV ONE (11:50)
[2018-08-19] MEDS ORDERED: PROPOFOL INJ 200 MG/20 ML VIAL IV ONE ×2 (12:43→12:52)
--- NOTE | 2018-08-19 13:47 | Operative Report ---
Operative Report DATE OF SURGERY: 08/19/18 Operative Report: The risks, benefits and alternatives of the procedure including the risks of bleeding, perforation requiring surgery are explained to the patient in detail and informed consent is obtained. Patient is brought back to the endoscopy suite and placed in the left, lateral decubital position. Timeout was called. Propofol medication is administered. A rectal examination is done which did not reveal any masses, tears or fissures. An Olympus videoscope was introduced into the patient's rectum. The scope was then carefully advanced all the way to the cecum. The cecum was identified by the usual anatomical landmarks of the ileocecal valve as well as the appendiceal office. Photodocumentation is obtained. The scope was then sequentially pulled back via the various segments of the colon including the ascending colon, hepatic flexure, transverse colon, splenic flexure, descending colon and finally into the rectosigmoid portions of the colon. Retroflexion maneuver is performed. The risks benefits and alternatives of the procedure explained to the patient in detail and informed consent is obtained .A GIF Olympus video scope was inserted into the patient's mouth and hypopharynx, the esophagus is identified intubated and insufflated, the scope was then advanced through the esophagus stomach and duodenum ,retroflexion maneuver is done the esophagus stomach and first and second portions of the duodenum examined PREOPERATIVE DIAGNOSIS: Weight loss, dysphagia, blood in stool. Patient has a history of previous gastric sleeve procedure POSTOPERATIVE DIAGNOSIS: Pseudoobstruction noted in the stomach. There is no small transition in the stomach. The proximal portion appears to be folded on the distal portion. Redundant colon. Internal hemorrhoids. Mild right-sided inflammation status post biopsy. Gastritis status post biopsy rule out Helicobacter pylori OPERATION: Colonoscopy with biopsy. EGD with biopsy SURGEON: ADRIÁN HUTSON ANESTHESIA: LMAC TISSUE REMOVED OR ALTERED: As noted above. COMPLICATIONS: None. ESTIMATED BLOOD LOSS: None. INTRAOPERATIVE FINDINGS: As noted above. PROCEDURE: Patient tolerated the procedure well. No immediate postprocedure complications are noted. Patient discharged in good condition. Discharge date 08/19/2018. Discharge diet: Regular. Discharge activity: Regular. 2-3-week follow-up to discuss findings. Referral to bariatric surgery for possible reversal of gastric sleeve surgery if possible Wait on the pathology Patient is instructed to call the office or proceed to the emergency room should there be any further problems or questions.
[2018-08-19 14:16] VITALS: BP 96/74
== END 2018-08-19 13:57 | disposition home or self-care (01) ==
LOC: END 11:14
PROVIDERS: ATTEND Internal Medicine Gastroenterology
DX: K92.1 Melena (principal); K29.50 Unspecified chronic gastritis without bleeding; K52.9 Noninfective gastroenteritis and colitis, unspecified; K64.8 Other hemorrhoids; Z98.84 Bariatric surgery status; E03.9 Hypothyroidism, unspecified; E20.9 Hypoparathyroidism, unspecified; Z88.2 Allergy status to sulfonamides; Z79.899 Other long term (current) drug therapy; Z88.8 Allergy status to other drugs, medicaments and biological substances; Z88.5 Allergy status to narcotic agent
CPT/HCPCS: 43239; 45380; 88342 ×2; 88305 ×2; J3490; J2704; 813

== ENCOUNTER → 2018-08-28 | Outpatient (CLI) | payer OTHER ==
--- NOTE | 2018-08-28 10:29 | RADIOLOGY REPORT (SQ) ---
EXAM DESCRIPTION: UGI SERIES COMPLETED DATE/TIME: 08/28/2018 9:19 am REASON FOR STUDY: BILIOUS VOMITING (R11.14) R11.14 BILIOUS VOMITING COMPARISON: None. TECHNIQUE: Under fluoroscopic guidance, patient ingested effervescent granules followed by thick and thin barium. Fluoroscopic spot images and routine radiographic images acquired and stored on PACS. 12 MM BARIUM TABLET GIVEN: No LIMITATIONS: None. FLUOROSCOPY TIME: FLUORO TIME: 2 minutes 48 seconds 31 digital fluoro images saved to PACS. FINDINGS: NEUROMUSCULAR COORDINATION OF SWALLOW: Normal. No aspiration. ESOPHAGEAL MOTILITY: Normal peristalsis. No esophageal spasm. ESOPHAGEAL MUCOSA: Normal mucosa without masses or ulceration. GASTRO-ESOPHAGEAL JUNCTION: Moderate size retrocardiac hiatal hernia. Gastroesophageal reflux is not ed during the study. No Schatzki's ring. 12 mm barium tablet passed without difficulty. STOMACH: Patient has had a prior gastric sleeve procedure involving the stomach fundus and body. At the inferior aspect of the staple line, a fixed narrowing about 1.5 cm in diameter is present in the body of the stomach about 10 cm from the GE junction. This persists on multiple projections. Liquid barium passed through this narrowing into the gastric antrum/pylorus/ duodenum without delay. Gastr ic antrum unremarkable. GASTRIC OUTLET: No delay in emptying. Normal pylorus. DUODENAL BULB: Normal distention. No spasm or ulceration. DUODENUM: Mucosa normal. No extrinsic masses or malrotation. Slender patient with effacement of the contrast as the duodenum passes over the spine PROXIMAL SMALL BOWEL: Mucosa normal. No extrinsic masses or malrotation. NON-GI TRACT STRUCTURES: Clips post cholecystectomy. Post thyroidectomy. Lumbar spine fusion OTHER: No other significant finding. IMPRESSION: Moderate size retrocardiac hiatal hernia with gastroesophageal reflux. No Schatzki's ri ng. Fixed narrowing, about 1.5 cm in diameter along the gastric body at the inferior edge of the gastric sleeve procedure staple line. Liquid barium passed through this narrowing into the gastric antrum/py lorus/duodenum without delay COMMENT: Quality ID 145: Final reports for procedures using fluoroscopy that document radiation exp osure indices, or exposure time and number of fluorographic images (if radiation exposure indices are not available) TECHNICAL DOCUMENTATION: JOB ID: [id number] [employer]- All Rights Reserved Reading location - IP/workstation name: [email or web address]
== END ==
LOC: RAD 08:01
PROVIDERS: ATTEND Internal Medicine Gastroenterology
DX: R11.14 Bilious vomiting (principal); K21.9 Gastro-esophageal reflux disease without esophagitis; K44.9 Diaphragmatic hernia without obstruction or gangrene
CPT/HCPCS: 74247

== ENCOUNTER → 2019-04-30 | Outpatient (CLI) | payer OTHER ==
[2019-04-30 14:08] LABS: ALANINE AMINOTRANSFERASE 28 U/L (9-52); ALBUMIN 4.9 g/dL (3.5-5.0); ALKALINE PHOSPHATASE 44 U/L (38-126); ANION GAP 10 (5-19); ASPARTATE AMINO TRANSFERASE 35 U/L (14-36); BILIRUBIN,DIRECT 0.3 mg/dL (0.0-0.4); BILIRUBIN,TOTAL 0.4 mg/dL (0.2-1.3); BLOOD UREA NITROGEN 15 mg/dL (7-20); CALCIUM 8.7 mg/dL (8.4-10.2); CARBON DIOXIDE 29 mmol/L (22-30); CHLORIDE 102 mmol/L (98-107); GLUCOSE 70 mg/dL (75-110); POTASSIUM 4.5 mmol/L (3.6-5.0); TOTAL PROTEIN 7.6 g/dL (6.3-8.2)
[2019-04-30 14:53] LABS: HEMATOCRIT 40.2 % (36.0-47.0); HEMOGLOBIN 13.4 g/dL (12.0-15.5); MEAN CORPUSCULAR HEMOGLOBIN 31.6 pg (27.0-33.4); MEAN CORPUSCULAR HGB CONC 33.4 g/dL (32.0-36.0); MEAN CORPUSCULAR VOLUME 95 fl (80-97); PLATELET COUNT 217 10^3/uL (150-450); RED BLOOD COUNT 4.24 10^6/uL (3.72-5.28); RED CELL DISTRIBUTION WIDTH 13.7 % (11.5-14.0); WHITE BLOOD COUNT 5.8 10^3/uL (4.0-10.5)
== END ==
LOC: OD 11:53
PROVIDERS: ATTEND Obstetrics & Gynecology
DX: E03.9 Hypothyroidism, unspecified (principal); E20.9 Hypoparathyroidism, unspecified; D64.9 Anemia, unspecified; K21.0 Gastro-esophageal reflux disease with esophagitis; K58.0 Irritable bowel syndrome with diarrhea
CPT/HCPCS: 36415; 80053; 84443; 85027

== ENCOUNTER 2019-05-17 17:58 | Emergency (ER) | payer OTHER ==
[2019-05-17] MEDS ORDERED: NORMAL SALINE 1000 ML 1,000 ML IV ONE (18:48)
[2019-05-17] MEDS ORDERED: ONDANSETRON HCL INJ/PF 4 MG/2 ML SDV IV ONE ×2 (18:48→22:39)
[2019-05-17] MEDS ORDERED: KETOROLAC TROMETHAMINE INJ/PF 30 MG/1 ML SDV IV ONE (18:48)
--- NOTE | 2019-05-17 18:53 | ER Document Report ---
ED Medical Screen (RME) - General Chief Complaint: Flank Pain Stated Complaint: STOMACH PAIN Time Seen by Provider: 05/17/19 18:41 Primary Care Provider: ERIN LUGO MD [Primary Care Provider] - Follow up as needed Mode of Arrival: Ambulatory Information source: Patient Notes: Patient is a 43-year-old female presented to the emergency department chief complaint of right flank pain. Patient reports recent discharge from this hospital for pyelonephritis. She also reports recent discharge from the [facility] for pyelonephritis. She is complaining of severe right lower quadrant pain and dysuria. She states she is tried all home remedies. She does report that she is in pain management. She does appear to be preoccupied with asking about pain control here in the emergency department. She does not appear to be in any acute distress. Her vital signs are within normal limits. She has not had a fever greater than 100 however she reports chills at home and intermittent vomiting. Exam: Nonspecific tenderness to palpation of right lower quadrant and right flank. I have greeted and performed a rapid initial assessment of this patient. A comprehensive ED assessment and evaluation of the patient, analysis of test results and completion of the medical decision making process will be conducted by additional ED providers. I have specifically instructed the patient or family members with the patient to immediately return to any nursing staff should anything change in the patient's condition or with their chief complaint. This medical record was dictated with voice recognizing software. There may be grammatical, syntax errors that are unintended. TRAVEL OUTSIDE OF THE [place] IN LAST 30 DAYS: No - Related Data Allergies/Adverse Reactions: prochlorperazine edisylate [From Compazine] Allergy (Severe, Verified 05/02/19 00:26) RAPID HEART RATE, SWEATING, AMS prochlorperazine maleate [From Compazine] Allergy (Severe, Verified 05/02/19 00:26) RAPID HEART RATE, SWEATING,AMS Sulfa (Sulfonamide Antibiotics) Allergy (Severe, Verified 05/02/19 00:26) Anaphylaxis divalproex sodium [From Depakote] Allergy (Verified 05/02/19 00:26) RAPID HEART RATE,EXASPERATED DISEASE SYMPTOMS morphine [Morphine] Adverse Reaction (Intermediate, Verified 05/02/19 00:26) Hives metoclopramide HCl [From Reglan] Adverse Reaction (Mild, Verified 05/02/19 00:26) HEART RATE RAPID, SWEATING, AMS levofloxacin [From Levaquin] Adverse Reaction (Unknown, Verified 05/02/19 00:26) Past Medical History - Social History Frequency of alcohol use: Social Drug Abuse: Marijuana - Past Medical History Cardiac Medical History: Reports: Hx Hypertension Denies: Hx Coronary Artery Disease, Hx Heart Attack - HX OF ABNORMAL EKGS FROM LOW CALCIUM Pulmonary Medical History: Reports: Hx Pneumonia - 2005 Denies: Hx Asthma, Hx Bronchitis, Hx COPD Neurological Medical History: Reports: Hx Migraine, Hx Seizures - THREE SEIZU RES, 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 Denies: Hx Cerebrovascular Accident Endocrine Medical History: Reports: Hx Hypothyroidism Renal/ Medical History: Denies: Hx Peritoneal Dialysis GI Medical History: Reports: Hx Gastritis, Hx Gastroesophageal Reflux Disease Musculoskeltal Medical History: Denies Hx Arthritis - Tendonitis and bursitis in L shoulder , Reports Hx Musculoskeletal Deformity, Reports Hx Musculoskeletal Trauma Psychiatric Medical History: Reports: Hx Anxiety, Hx Attention Deficit Hyperactivity Disorder, Hx Depression Past Surgical History: Reports: Hx Abdominal Surgery - bowel resection, Hx Cholecystectomy, Hx Hysterectomy, Hx Orthopedic Surgery - back, Hx Thyroid Surgery, Hx Tonsillectomy - Immunizations Immunizations up to date: Yes Hx Diphtheria, Pertussis, Tetanus Vaccination: No Influenza Administration Date for 07/2017 - 11/2017 Season: 07/01/18 Physical Exam - Vital signs Vitals: Temp Pulse Resp BP Pulse Ox 98.1 F 79 16 136/85 H 95 05/17/19 18:07 05/17/19 18:07 05/17/19 18:07 05/17/19 18:07 05/17/19 18:07 Course - Vital Signs Vital signs: Temp Pulse Resp BP Pulse Ox 98.1 F 79 16 136/85 H 95 05/17/19 18:07 05/17/19 18:07 05/17/19 18:07 05/17/19 18:07 05/17/19 18:07 Doctor's Discharge - Discharge Referrals: ERIN LUGO MD [Primary Care Provider] - Follow up as needed
--- NOTE | 2019-05-17 19:42 | ER Document Report ---
ED General - General Chief Complaint: Flank Pain Stated Complaint: STOMACH PAIN Time Seen by Provider: 05/17/19 18:41 Primary Care Provider: ERIN LUGO MD [Primary Care Provider] - Follow up as needed Mode of Arrival: Ambulatory Information source: Patient, Relative, [facility] Records Notes: 43-year-old female with chronic pain (in pain management), history of gastric s treet sleeve, reported history of recent pyelonephritis presents with complaint of right flank pain that started 3 days prior to arrival. Patient describes the pain as stabbing, sharp with radiation to her right lower quadrant. Patient has had associated dysuria that also started 3 days ago. She has had associated nausea, vomiting but denies any vaginal discharge, fever, chills. Patient was discharged home with an antibiotic after her recent admission on May 04, 2019. TRAVEL OUTSIDE OF THE [place] IN LAST 30 DAYS: No - HPI Onset: Other Onset/Duration: Gradual, Persistent, Worse Quality of pain: Sharp, Stabbing Severity: Moderate Associated symptoms: Fever - Subjective, Nausea, Vomiting. denies: Chest pain, Diarrhea, Shortness of breath Exacerbated by: Movement Relieved by: Denies Similar symptoms previously: Yes Recently seen / treated by doctor: Yes - Related Data Allergies/Adverse Reactions: prochlorperazine edisylate [From Compazine] Allergy (Severe, Verified 05/02/19 00:26) RAPID HEART RATE, SWEATING, AMS prochlorperazine maleate [From Compazine] Allergy (Severe, Verified 05/02/19 00:26) RAPID HEART RATE, SWEATING,AMS Sulfa (Sulfonamide Antibiotics) Allergy (Severe, Verified 05/02/19 00:26) Anaphylaxis divalproex sodium [From Depakote] Allergy (Verified 05/02/19 00:26) RAPID HEART RATE,EXASPERATED DISEASE SYMPTOMS morphine [Morphine] Adverse Reaction (Intermediate, Verified 05/02/19 00:26) Hives metoclopramide HCl [From Reglan] Adverse Reaction (Mild, Verified 05/02/19 00:26) HEART RATE RAPID, SWEATING, AMS levofloxacin [From Levaquin] Adverse Reaction (Unknown, Verified 05/02/19 00:26) Past Medical History - General Information source: Patient - Social History Smoking Status: Former Smoker Frequency of alcohol use: Social Drug Abuse: Marijuana Lives with: Spouse/Significant other Family History: Reviewed & Not Pertinent Patient has suicidal ideation: No Patient has homicidal ideation: No - Past Medical History Cardiac Medical History: Reports: Hx Hypertension Denies: Hx Coronary Artery Disease, Hx Heart Attack - 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 Denies: Hx Cerebrovascular Accident Endocrine Medical History: Reports: Hx Hypothyroidism Renal/ Medical History: Denies: Hx Peritoneal Dialysis GI Medical History: Reports: Hx Gastritis, Hx Gastroesophageal Reflux Disease Musculoskeletal Medical History: Denies Hx Arthritis - Tendonitis and bursitis in L shoulder , Reports Hx Musculoskeletal Deformity, Reports Hx Musculoskeletal Trauma Psychiatric Medical History: Reports: Hx Anxiety, Hx Attention Deficit Hyperactivity Disorder, Hx Depression Past Surgical History: Reports: Hx Abdominal Surgery - bowel resection, Hx Cholecystectomy, Hx Hysterectomy, Hx Orthopedic Surgery - back, Hx Thyroid Surgery, Hx Tonsillectomy - Immunizations Immunizations up to date: Yes Hx Diphtheria, Pertussis, Tetanus Vaccination: No Hx Pneumococcal Vaccination: 07/01/12 Review of Systems - Review of Systems Constitutional: Fever, Recent illness EENT: denies: Difficulty swallowing Cardiovascular: denies: Chest pain, Palpitations, Dyspnea Respiratory: denies: Cough, Short of breath Gastrointestinal: Abdominal pain, Nausea, Vomiting. denies: Blood streaked bowels, Poor appetite, Poor fluid intake Genitourinary: Dysuria, Flank pain Female Genitourinary: denies: Vaginal discharge, Vaginal odor Musculoskeletal: Back pain Skin: denies: Rash Hematologic/Lymphatic: No symptoms reported Neurological/Psychological: denies: Headaches -: Yes All other systems reviewed and negative Physical Exam - Vital signs Vitals: Temp Pulse Resp BP Pulse Ox 98.1 F 79 16 136/85 H 95 05/17/19 18:07 05/17/19 18:07 05/17/19 18:07 05/17/19 18:07 05/17/19 18:07 - Notes Notes: PHYSICAL EXAMINATION: GENERAL: Well-appearing, well-nourished and in no acute distress. HEAD: Atraumatic, normocephalic. EYES: Pupils equal round and reactive to light, extraocular movements intact, conjunctiva are normal. ENT: Nares patent, oropharynx clear without exudates. Moist mucous membranes. NECK: Normal range of motion, supple without lymphadenopathy LUNGS: Breath sounds clear to auscultation bilaterally and equal. No wheezes rales or rhonchi. HEART: Regular rate and rhythm without murmurs ABDOMEN: Soft, generalized tenderness with palpation to the abdomen,, right flank, nondistended abdomen. No guarding, no rebound. No masses appreciated. Female : deferred Musculoskeletal: Normal range of motion, no pitting or edema. No cyanosis. NEUROLOGICAL: Cranial nerves grossly intact. Normal speech, normal gait. Normal sensory, motor exams PSYCH: Normal mood, normal affect. SKIN: Warm, Dry, normal turgor, no rashes or lesions noted. Course - Re-evaluation Re-evalutation: 05/18/19 02:16 Laboratory 05/17/19 05/17/19 05/17/19 19:25 20:00 20:00 WBC Cancelled RBC Cancelled Hgb Cancelled Hct Cancelled MCV Cancelled MCH Cancelled MCHC Cancelled RDW Cancelled Plt Count Cancelled Seg Neutrophils % Cancelled Lymphocytes % Cancelled Monocytes % Cancelled Eosinophils % Cancelled Basophils % Cancelled Absolute Neutrophils Cancelled Absolute Lymphocytes Cancelled Absolute Monocytes Cancelled Absolute Eosinophils Cancelled Absolute Basophils Cancelled Platelet Estimate Cancelled Sodium 138.2 Potassium 4.8 Chloride 102 Carbon Dioxide 32 H Anion Gap 4 L BUN 12 Creatinine 0.68 Est GFR ( Amer) > 60 Est GFR (Non-Af Amer) > 60 Glucose 78 Calcium 8.0 L Ionized Calcium Tres Total Bilirubin 0.8 Direct Bilirubin 0.3 Neonat Total Bilirubin Not Reportable Neonat Direct Bilirubin Not Reportable Neonat Indirect Bili Not Reportable AST 44 H ALT 18 Alkaline Phosphatase 38 Total Protein 5.9 L Albumin 3.6 Lipase 50.0 TSH Serum HCG, Qual Urine Color FRANDY Urine Appearance CLEAR Urine pH 6.0 Ur Specific Excello 1.009 Urine Protein NEGATIVE Urine Glucose (UA) NEGATIVE Urine Ketones NEGATIVE Urine Blood LARGE H Urine Nitrite POSITIVE H Urine Bilirubin NEGATIVE Urine Urobilinogen 4.0 H Ur Leukocyte Esterase NEGATIVE Urine WBC (Auto) 28 Urine RBC (Auto) 105 Urine Bacteria (Auto) TRACE Squamous Epi Cells Auto 3 Urine Mucus (Auto) RARE Urine Ascorbic Acid 20 H Slides for Path Review Cancelled 05/17/19 05/17/19 05/17/19 20:00 20:00 20:45 WBC 11.5 H RBC 2.92 L Hgb 9.4 L Hct 28.1 L MCV 96 MCH 32.3 MCHC 33.5 RDW 14.2 H Plt Count 320 Seg Neutrophils % 75.1 Lymphocytes % 17.6 Monocytes % 2.7 L Eosinophils % 4.1 Basophils % 0.5 Absolute Neutrophils 8.6 H Absolute Lymphocytes 2.0 Absolute Monocytes 0.3 Absolute Eosinophils 0.5 Absolute Basophils 0.1 Platelet Estimate Sodium Potassium Chloride Carbon Dioxide Anion Gap BUN Creatinine Est GFR ( Amer) Est GFR (Non-Af Amer) Glucose Calcium Ionized Calcium Tres Total Bilirubin Direct Bilirubin Neonat Total Bilirubin Neonat Direct Bilirubin Neonat Indirect Bili AST ALT Alkaline Phosphatase Total Protein Albumin Lipase TSH 30.20 H Serum HCG, Qual NEGATIVE Urine Color Urine Appearance Urine pH Ur Specific Excello Urine Protein Urine Glucose (UA) Urine Ketones Urine Blood Urine Nitrite Urine Bilirubin Urine Urobilinogen Ur Leukocyte Esterase Urine WBC (Auto) Urine RBC (Auto) Urine Bacteria (Auto) Squamous Epi Cells Auto Urine Mucus (Auto) Urine Ascorbic Acid Slides for Path Review 05/17/19 20:45 WBC RBC Hgb Hct MCV MCH MCHC RDW Plt Count Seg Neutrophils % Lymphocytes % Monocytes % Eosinophils % Basophils % Absolute Neutrophils Absolute Lymphocytes Absolute Monocytes Absolute Eosinophils Absolute Basophils Platelet Estimate Sodium Potassium Chloride Carbon Dioxide Anion Gap BUN Creatinine Est GFR ( Amer) Est GFR (Non-Af Amer) Glucose Calcium Ionized Calcium Tres 1.07 L Total Bilirubin Direct Bilirubin Neonat Total Bilirubin Neonat Direct Bilirubin Neonat Indirect Bili AST ALT Alkaline Phosphatase Total Protein Albumin Lipase TSH Serum HCG, Qual Urine Color Urine Appearance Urine pH Ur Specific Excello Urine Protein Urine Glucose (UA) Urine Ketones Urine Blood Urine Nitrite Urine Bilirubin Urine Urobilinogen Ur Leukocyte Esterase Urine WBC (Auto) Urine RBC (Auto) Urine Bacteria (Auto) Squamous Epi Cells Auto Urine Mucus (Auto) Urine Ascorbic Acid Slides for Path Review Abdomen/Pelvis CT 05/17/19 19:39 IMPRESSION: Query mild colitis involving the distal colon. Chest X-Ray 05/17/19 21:40 IMPRESSION: No evidence of acute cardiopulmonary disease. Temp Pulse Resp BP Pulse Ox 97.8 F 64 18 123/81 95 05/17/19 23:04 05/17/19 23:04 05/17/19 23:04 05/17/19 23:04 05/17/19 18:07 05/18/19 02:17 43-year-old female with chronic pain (in pain management), history of gastric street sleeve, reported history of recent pyelonephritis presents with complaint of right flank pain that started 3 days prior to arrival. Patient describes the pain as stabbing, sharp with radiation to her right lower quadrant. Patient has had associated dysuria that also started 3 days ago. Vital signs reviewed upon arrival and patient is afebrile, normotensive and not hypoxic. She does not appear toxic or dehydrated. Patient is actually very well-appearing and has perfect lipstick and make-up applied. She is in no acute distress. Exam is significant for generalized abdominal tenderness. CBC shows a mild leukocytosis, stable anemia. CMP without significant electrolyte abnormality. Urinalysis is positive for nitrites and blood similar to her urinalysis obtained earlier this month. Urine culture will be sent. CT of the abdomen showed questionable mild colitis. CT also showed right-sided groundglass opacities and patient does report a persistent cough. Patient did receive Toradol and on reevaluation reports no improvement of her pain. Dilaudid and Zofran have been administered to the patient and she does report some improvement of her pain. She is tolerating fluids. No home-going pain medication has been prescribed due to the patient's involvement with pain management. She takes OxyContin 20 mg 3 times daily. and expressed frustration regarding our inability to tell them why she has chronic pain. 05/18/19 02:18 Patient was evaluated and treated as appropriate for the patient's presenting symptoms and complaint, with consideration of any critical or life threatening conditions that may be associated with their obtained history and exam as noted above. All results were discussed with patient and her who is at the bedside patient provided the opportunity to ask questions, and express concerns. Patient was educated on treatments based on their presumed diagnosis as noted above. At this time we will discharge the patient with return precautions and follow-up recommendations. Verbal discharge instructions given a the bedside. Medication warnings reviewed. Patient is in agreement with this plan and has verbalized understanding of return precautions. After careful consideration I feel that that patient can be safely discharged from the emergency department, they were advised to followup with a primary care physician in 2-3 days. Dictation on this chart was performed using voice recognition software and may result in unintended grammatical, spelling, syntax or errors. - Vital Signs Vital signs: Temp Pulse Resp BP Pulse Ox 97.8 F 64 18 123/81 95 05/17/19 23:04 05/17/19 23:04 05/17/19 23:04 05/17/19 23:04 05/17/19 18:07 - Laboratory Result Diagrams: 05/17/19 20:45 05/17/19 20:00 Laboratory results interpreted by me: 05/17/19 05/17/19 05/17/19 19:25 20:00 20:00 WBC RBC Hgb Hct RDW Monocytes % Absolute Neutrophils Carbon Dioxide 32 H Anion Gap 4 L Calcium 8.0 L Ionized Calcium Tres AST 44 H Total Protein 5.9 L TSH 30.20 H Urine Blood LARGE H Urine Nitrite POSITIVE H Urine Urobilinogen 4.0 H Urine Ascorbic Acid 20 H 05/17/19 05/17/19 20:45 20:45 WBC 11.5 H RBC 2.92 L Hgb 9.4 L Hct 28.1 L RDW 14.2 H Monocytes % 2.7 L Absolute Neutrophils 8.6 H Carbon Dioxide Anion Gap Calcium Ionized Calcium Tres 1.07 L AST Total Protein TSH Urine Blood Urine Nitrite Urine Urobilinogen Urine Ascorbic Acid - Diagnostic Test Radiology reviewed: Image reviewed, Reports reviewed Discharge - Discharge Clinical Impression: Flank pain, Dysuria, Colitis Condition: Good Disposition: HOME, SELF-CARE Instructions: Antinausea Medication ([facility]), Colitis, Nonspecific ([facility]), Flank Pain ([facility]), Upper Respiratory Illness ([facility]) Additional Instructions: Follow up with your -78 hours for further care or return to the ED IMMEDIATELY if symptoms worsen or you have any concerns. If you cannot afford to follow up with your primary care physician a list of low cost clinics have been provided at the end of your discharge papers as well. Most prescribed medications have multiple side effects. The safest thing to do is when filling your prescription speak to your pharmacist regarding possible interactions with your normal home medications and over the counter medications such as Ibuprofen, Tylenol, Benadryl. If you experience any symptoms that cause you discomfort or concern you should discontinue the medication immediately and return to the emergency room or call your primary care physician. Prescriptions: Ondansetron [Zofran Odt 4 mg Tablet] 1 - 2 tab PO Q4HP PRN #15 tab.rapdis PRN Reason: Amox Tr/Potassium Clavulanate [Augmentin 875-125 Tablet] 1 tab PO BID 10 Days tablet Forms: Elevated Blood Pressure, Return to Work Referrals: ERIN LUGO MD [Primary Care Provider] - Follow up as needed
[2019-05-17 20:30] LABS: ALBUMIN 3.6 g/dL (3.5-5.0); ALKALINE PHOSPHATASE 38 U/L (38-126); ASPARTATE AMINO TRANSFERASE 44 U/L (14-36); BILIRUBIN,DIRECT 0.3 mg/dL (0.0-0.4); BILIRUBIN,TOTAL 0.8 mg/dL (0.2-1.3); BLOOD UREA NITROGEN 12 mg/dL (7-20); CARBON DIOXIDE 32 mmol/L (22-30); GLUCOSE 78 mg/dL (75-110); POTASSIUM 4.8 mmol/L (3.6-5.0); TOTAL PROTEIN 5.9 g/dL (6.3-8.2)
[2019-05-17 20:35] LABS: CHLORIDE 102 mmol/L (98-107)
[2019-05-17 20:37] LABS: ANION GAP 4 (5-19)
[2019-05-17 20:57] LABS: ABSOLUTE BASOPHILS # (AUTO) 0.1 10^3/uL (0.0-0.2); ABSOLUTE EOSINOPHILS # (AUTO) 0.5 10^3/uL (0.0-0.6); ABSOLUTE MONOCYTES (AUTO) 0.3 10^3/uL (0.1-1.4); ABSOLUTE NEUT (AUTO) 8.6 10^3/uL (1.7-8.2); BASOPHILS % (AUTO) 0.5 % (0-2); EOSINOPHILS % (AUTO) 4.1 % (0-6); HEMATOCRIT 28.1 % (36.0-47.0); HEMOGLOBIN 9.4 g/dL (12.0-15.5); LYMPHOCYTES % (AUTO) 17.6 % (13-45); MEAN CORPUSCULAR HEMOGLOBIN 32.3 pg (27.0-33.4); MEAN CORPUSCULAR HGB CONC 33.5 g/dL (32.0-36.0); MEAN CORPUSCULAR VOLUME 96 fl (80-97); MONOCYTES % (AUTO) 2.7 % (3-13); PLATELET COUNT 320 10^3/uL (150-450); RED BLOOD COUNT 2.92 10^6/uL (3.72-5.28); RED CELL DISTRIBUTION WIDTH 14.2 % (11.5-14.0); SEGMENTED NEUTROPHILS % (AUTO) 75.1 % (42-78); TOTAL CELLS COUNTED % (AUTO) 100 %; WHITE BLOOD COUNT 11.5 10^3/uL (4.0-10.5)
[2019-05-17 21:07] LABS: APPEARANCE,URINE CLEAR; BILIRUBIN,URINE NEGATIVE (NEGATIVE); COLOR,URINE AMBER; GLUCOSE, URINE NEGATIVE (NEGATIVE); KETONES,URINE NEGATIVE (NEGATIVE); LEUKOCYTE ESTERASE,URINE NEGATIVE (NEGATIVE); NITRITE,URINE POSITIVE (NEGATIVE); PROTEIN,URINE NEGATIVE (NEGATIVE); URINE SPECIFIC GRAVITY 1.009
--- NOTE | 2019-05-17 21:33 | RADIOLOGY REPORT (SQ) ---
CT ABDOMEN PELVIS WITHOUT IV CONTRAST EXAM DATE: 05/17/2019 7:39 PM CDT HISTORY: Right lower quadrant pain. COMPARISON: 08/01/2016 TECHNIQUE: CT scan of the abdomen and pelvis was performed without IV contrast. This exam was performed according to our departmental dose-optimization program, which includes automated exposure control, adjustment of the mA and/or kV according to patient size and/or use of iterative reconstruction technique. FINDINGS: Groundglass opacity in the right lung base. No pleural or pericardial effusions. No hiatal hernia with prior gastric surgery noted. There has been a prior cholecystectomy. The liver, spleen, pancreas, adrenal glands, and kidneys are normal without hydronephrosis or obstructing urinary stones. There has been a prior hysterectomy. Mild wall thickening of the descending colon. The appendix is not well visualized; however there are no inflammatory changes in the right lower quadrant. Surgical sutures are seen in the distal small bowel. No intraperitoneal free fluid or free air is seen. Prior L5-S1 interbody and posterior spinal fixation. The aorta is normal caliber. No body wall hernia. IMPRESSION: Query mild colitis involving the distal colon.
[2019-05-17] MEDS ORDERED: HYDROMORPHONE HCL INJ/PF 2 MG/ML AMPULE IV ONE (21:53)
[2019-05-17] MEDS ORDERED: AMOXICILLIN TR/POT CLAVULANATE 500-125 MG TAB PO ONE (21:53)
[2019-05-17] MEDS ORDERED: ONDANSETRON HCL INJ/PF 4 MG/2 ML SDV ONE (22:17)
--- NOTE | 2019-05-17 22:17 | RADIOLOGY REPORT (SQ) ---
XR CHEST 2 VIEWS EXAM DATE: 05/17/2019 9:40 PM CDT HISTORY: Opacities seen on CT. COMPARISON: CT scan from earlier the same day. FINDINGS: The heart size is within normal limits. No consolidation, pleural effusion, or pneumothorax is seen. The bony thorax is intact. IMPRESSION: No evidence of acute cardiopulmonary disease.
[2019-05-17] MEDS ORDERED: DIPHENHYDRAMINE HCL 50 MG/ML VIAL IV ONE (22:20)
[2019-05-17] MEDS ORDERED: METOCLOPRAMIDE HCL INJ/PF 10 MG/2 ML SDV IV ONE (22:20)
[2019-05-17 23:05] VITALS: BP 123/81
== END 2019-05-17 23:20 | disposition home or self-care (01) ==
LOC: ER 17:58
DX: K52.9 Noninfective gastroenteritis and colitis, unspecified (principal); R10.9 Unspecified abdominal pain; R30.0 Dysuria; R11.2 Nausea with vomiting, unspecified; D64.9 Anemia, unspecified; D72.829 Elevated white blood cell count, unspecified; I10 Essential (primary) hypertension; R50.9 Fever, unspecified; M54.9 Dorsalgia, unspecified; R05 Cough; R31.9 Hematuria, unspecified; R10.817 Generalized abdominal tenderness; G89.29 Other chronic pain; Z79.891 Long term (current) use of opiate analgesic; Z98.84 Bariatric surgery status; Z87.440 Personal history of urinary (tract) infections; Z88.8 Allergy status to other drugs, medicaments and biological substances; Z88.2 Allergy status to sulfonamides; Z87.891 Personal history of nicotine dependence; Z87.19 Personal history of other diseases of the digestive system; Z90.49 Acquired absence of other specified parts of digestive tract; Z90.710 Acquired absence of both cervix and uterus
CPT/HCPCS: 36415; 87086; 83690; 84443; 84703; 85025; 80053; 81001; 82330; 71046; 74176; J1200; J1885; J1170; J2405; J7030; 96361; 96374; 96375; 99284

== ENCOUNTER 2019-05-24 22:30 | Emergency (ER) | payer OTHER ==
[2019-05-25] MEDS ORDERED: PANTOPRAZOLE SODIUM 40 MG VIAL IV ONE (00:37)
[2019-05-25] MEDS ORDERED: PANTOPRAZOLE SODIUM 40 MG VIAL IV PRN (00:37)
[2019-05-25 00:42] LABS: ABSOLUTE EOSINOPHILS # (AUTO) 0.1 10^3/uL (0.0-0.6); ABSOLUTE LYMPHOCYTES (AUTO) 1.5 10^3/uL (0.5-4.7); ABSOLUTE MONOCYTES (AUTO) 0.4 10^3/uL (0.1-1.4); ABSOLUTE NEUT (AUTO) 7.6 10^3/uL (1.7-8.2); BASOPHILS % (AUTO) 0.2 % (0-2); EOSINOPHILS % (AUTO) 1.1 % (0-6); HEMATOCRIT 35.5 % (36.0-47.0); HEMOGLOBIN 11.7 g/dL (12.0-15.5); LYMPHOCYTES % (AUTO) 15.7 % (13-45); MEAN CORPUSCULAR HEMOGLOBIN 32.7 pg (27.0-33.4); MEAN CORPUSCULAR HGB CONC 33.1 g/dL (32.0-36.0); MEAN CORPUSCULAR VOLUME 99 fl (80-97); MONOCYTES % (AUTO) 3.9 % (3-13); PLATELET COUNT 325 10^3/uL (150-450); RED BLOOD COUNT 3.59 10^6/uL (3.72-5.28); RED CELL DISTRIBUTION WIDTH 15.2 % (11.5-14.0); SEGMENTED NEUTROPHILS % (AUTO) 79.1 % (42-78); TOTAL CELLS COUNTED % (AUTO) 100 %; WHITE BLOOD COUNT 9.6 10^3/uL (4.0-10.5)
--- NOTE | 2019-05-25 00:58 | ER Document Report ---
ED General - General Chief Complaint: Abdominal Pain Stated Complaint: NAUSEA, VOMITTING Time Seen by Provider: 05/25/19 00:35 Primary Care Provider: ERIN LUGO MD [Primary Care Provider] - Follow up as needed TRAVEL OUTSIDE OF THE [place] IN LAST 30 DAYS: No - HPI Notes: Patient is a 43-year-old female that presents to the emergency department for chief complaint of hematemesis. Patient reports vomiting bright red blood 2-3 times today. states the first time it appeared to be about half a cup of blood. She denies any known black or bloody stools. Patient states she had an episode of hematemesis after a hiatal hernia surgery in November. Since that surgery she has had ongoing nausea vomiting and diarrhea. She states she has vomited at least 1 or 2 times daily for the last 2 weeks. She does report right lower abdominal pain that radiates around into her right flank and has been ongoing for the last few weeks as well. Patient states she is currently on Azo for recent pyelonephritis. She denies fevers today. Patient was also sitting in the waiting room and had a syncopal episode falling forward out of the chair and hitting her head. She denied any associated chest pain palpitations. Patient does state that she has a history of anemia and takes her iron "when I can keep it down". Patient is also on Protonix daily. Past Medical History: Chronic pain, hypertension, hypothyroidism Past Surgical History: Gastric sleeve, hiatal hernia surgery, thyroidectomy, rotator cuff surgery Social History: Reviewed in chart Family History: Reviewed and noncontributory for presenting illness Allergies: Reviewed, see documented allergy list. REVIEW OF SYSTEMS: CONSTITUTIONAL : No fever No chills No diaphoresis No recent illness EENT: No vision changes No congestion No sore throat CARDIOVASCULAR: No chest pain No palpitations RESPIRATORY: No shortness of breath No cough No difficulty breathing GASTROINTESTINAL: abdominal pain nausea vomiting diarrhea GENITOURINARY: No dysuria No hematuria No difficulty urinating MUSCULOSKELETAL: No back pain No leg pain No arm pain SKIN: No rashes No lesions LYMPHATIC: No swollen, enlarged glands. NEUROLOGICAL: No lightheadedness No headache No weakness No paresthesias PSYCHIATRIC: No anxiety No depression PHYSICAL EXAMINATION: Vital signs reviewed, nursing noted reviewed. GENERAL: Ill-appearing, well-nourished and in no acute distress. HEAD: Atraumatic, normocephalic. EYES: Eyes appear normal, extraocular movements intact, sclera anicteric, conjunctiva are normal. ENT: nares patent, oropharynx clear without exudates. Mildly dry mucous me mbranes. NECK: Normal range of motion, supple without lymphadenopathy LUNGS: Breath sounds clear to auscultation bilaterally and equal. No wheezes rales or rhonchi. HEART: Regular rate and rhythm without murmurs ABDOMEN: Soft, right upper and lower quadrant tenderness and to a lesser extent left upper and lower quadrant tenderness. No rebound, guarding, or rigidity. No masses appreciated. EXTREMITIES: Nontender, good range of motion, no pitting or edema. NEUROLOGICAL: No focal neurological deficits. Moves all extremities spontaneously Motor and sensory grossly intact on exam. PSYCH: Normal mood, flat affect. SKIN: Warm, Dry, normal turgor, no rashes or lesions noted on exposed skin - Related Data Allergies/Adverse Reactions: prochlorperazine edisylate [From Compazine] Allergy (Severe, Verified 05/02/19 00:26) RAPID HEART RATE, SWEATING, AMS prochlorperazine maleate [From Compazine] Allergy (Severe, Verified 05/02/19 00:26) RAPID HEART RATE, SWEATING,AMS Sulfa (Sulfonamide Antibiotics) Allergy (Severe, Verified 05/02/19 00:26) Anaphylaxis divalproex sodium [From Depakote] Allergy (Verified 05/02/19 00:26) RAPID HEART RATE,EXASPERATED DISEASE SYMPTOMS morphine [Morphine] Adverse Reaction (Intermediate, Verified 05/02/19 00:26) Hives metoclopramide HCl [From Reglan] Adverse Reaction (Mild, Verified 05/02/19 00:26) HEART RATE RAPID, SWEATING, AMS levofloxacin [From Levaquin] Adverse Reaction (Unknown, Verified 05/02/19 00:26) Past Medical History - Social History Smoking Status: Never Smoker Chew tobacco use (# tins/day): No Frequency of alcohol use: None Family History: Reviewed & Not Pertinent Patient has suicidal ideation: No Patient has homicidal ideation: No - Past Medical History Cardiac Medical History: Reports: Hx Hypertension Denies: Hx Coronary Artery Disease, Hx Heart Attack - 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 Denies: Hx Cerebrovascular Accident Endocrine Medical History: Reports: Hx Hypothyroidism Renal/ Medical History: Denies: Hx Peritoneal Dialysis GI Medical History: Reports: Hx Gastritis, Hx Gastroesophageal Reflux Disease Musculoskeletal Medical History: Denies Hx Arthritis - Tendonitis and bursitis in L shoulder , Reports Hx Musculoskeletal Deformity, Reports Hx Musculoskeletal Trauma Psychiatric Medical History: Reports: Hx Anxiety, Hx Attention Deficit Hype ractivity Disorder, Hx Depression Past Surgical History: Reports: Hx Abdominal Surgery - bowel resection, Hx Cholecystectomy, Hx Hysterectomy, Hx Orthopedic Surgery - back, Hx Thyroid Surgery, Hx Tonsillectomy - Immunizations Immunizations up to date: Yes Hx Diphtheria, Pertussis, Tetanus Vaccination: No Hx Pneumococcal Vaccination: 07/01/12 Physical Exam - Vital signs Vitals: Temp Pulse Resp BP Pulse Ox 97.8 F 85 20 103/78 92 05/24/19 22:39 05/24/19 22:39 05/24/19 22:39 05/24/19 22:39 05/24/19 22:39 Course - Re-evaluation Re-evalutation: 05/25/19 00:56 Vitals reviewed. Nursing notes reviewed. Patient had a syncopal episode with head injury in the waiting room. She has complaint of bright red hematemesis. Patient started on IV fluids and Protonix for her upper GI bleeding. Lab work ordered. Patient currently mentating normally with no focal neurologic deficits 05/25/19 02:38 Patient reevaluated and does feel better after receiving Dilaudid and Protonix. She has not had any emesis in the emergency room. Her lab work today shows improved hemoglobin compared to prior. CT scan of her brain was obtained because of her head injury in the waiting room and shows no acute intracranial injury. She has remained alert and neurologically intact. Her troponin is also negative. Her syncopal episode is likely related to her recent vomiting and not cardiac in nature. Patient's care was discussed with Dr. Dorsey who will evaluate her in the emergency room. Laboratory 05/25/19 05/25/19 05/25/19 00:10 00:10 00:10 WBC 9.6 RBC 3.59 L Hgb 11.7 L Hct 35.5 L MCV 99 H MCH 32.7 MCHC 33.1 RDW 15.2 H Plt Count 325 Lymph % (Auto) 15.7 Chase % (Auto) 3.9 Eos % (Auto) 1.1 Baso % (Auto) 0.2 Absolute Neuts (auto) 7.6 Absolute Lymphs (auto) 1.5 Absolute Monos (auto) 0.4 Absolute Eos (auto) 0.1 Absolute Basos (auto) 0.0 Seg Neutrophils % 79.1 H Sodium 139.1 Potassium 4.7 Chloride 101 Carbon Dioxide 26 Anion Gap 12 BUN 17 Creatinine 0.73 Est GFR ( Amer) > 60 Est GFR (MDRD) Non-Af > 60 Glucose 102 Calcium 9.2 Total Bilirubin 0.6 Direct Bilirubin 0.3 Neonat Total Bilirubin Not Reportable Neonat Direct Bilirubin Not Reportable Neonat Indirect Bili Not Reportable AST 37 H ALT 29 Alkaline Phosphatase 44 Creatine Kinase 230 H CK-MB (CK-2) 2.05 Troponin I < 0.012 Total Protein 7.0 Albumin 4.6 Blood Type Antibody Screen 05/25/19 00:25 WBC RBC Hgb Hct MCV MCH MCHC RDW Plt Count Lymph % (Auto) Chase % (Auto) Eos % (Auto) Baso % (Auto) Absolute Neuts (auto) Absolute Lymphs (auto) Absolute Monos (auto) Absolute Eos (auto) Absolute Basos (auto) Seg Neutrophils % Sodium Potassium Chloride Carbon Dioxide Anion Gap BUN Creatinine Est GFR ( Amer) Est GFR (MDRD) Non-Af Glucose Calcium Total Bilirubin Direct Bilirubin Neonat Total Bilirubin Neonat Direct Bilirubin Neonat Indirect Bili AST ALT Alkaline Phosphatase Creatine Kinase CK-MB (CK-2) Troponin I Total Protein Albumin Blood Type A POSITIVE Antibody Screen NEGATIVE Head CT 05/25/19 00:36 IMPRESSION: 1. No acute intracranial findings. 05/25/19 02:48 After further conversations with Dr. Dorsey and the patient since she has an extensive history of surgery on her stomach at [facility] and Dr. Dorsey has recommended that she be transferred back to [place] for further management of her upper GI bleeding and persistent vomiting. Patient is in agreement with transfer and stable for transfer. 05/25/19 03:40 Patient's care was discussed with Dr. Jimenez who accepts patient for transfer to [facility] for further management. - Vital Signs Vital signs: Temp Pulse Resp BP Pulse Ox 98.3 F 76 17 125/65 98 05/25/19 00:42 05/25/19 00:42 05/25/19 00:42 05/25/19 00:42 05/25/19 00:42 - Laboratory Result Diagrams: 05/25/19 00:10 05/25/19 00:10 Laboratory results interpreted by me: 05/25/19 05/25/19 00:10 00:10 RBC 3.59 L Hgb 11.7 L Hct 35.5 L MCV 99 H RDW 15.2 H Seg Neutrophils % 79.1 H AST 37 H Creatine Kinase 230 H Discharge - Discharge Clinical Impression: Hematemesis Qualifiers: Nausea presence: with nausea Qualified Code(s): K92.0 - Hematemesis Syncope Qualifiers: Syncope type: unspecified Qualified Code(s): R55 - Syncope and collapse Abdominal pain Qualifiers: Abdominal location: unspecified location Qualified Code(s): R10.9 - Unspecified abdominal pain Closed head injury Qualifiers: Encounter type: initial encounter Qualified Code(s): S09.90XA - Unspecified injury of head, initial encounter Condition: Stable Disposition: [facility] Referrals: ERIN LUGO MD [Primary Care Provider] - Follow up as needed
[2019-05-25] MEDS ORDERED: METOCLOPRAMIDE HCL INJ/PF 10 MG/2 ML SDV IV ONE (01:13)
[2019-05-25] MEDS ORDERED: HYDROMORPHONE HCL INJ/PF 2 MG/ML AMPULE IV ONE ×2 (01:13→03:40)
[2019-05-25 01:23] LABS: ALBUMIN 4.6 g/dL (3.5-5.0); ALKALINE PHOSPHATASE 44 U/L (38-126); ANION GAP 12 (5-19); ASPARTATE AMINO TRANSFERASE 37 U/L (14-36); BILIRUBIN,DIRECT 0.3 mg/dL (0.0-0.4); BILIRUBIN,TOTAL 0.6 mg/dL (0.2-1.3); BLOOD UREA NITROGEN 17 mg/dL (7-20); CALCIUM 9.2 mg/dL (8.4-10.2); CARBON DIOXIDE 26 mmol/L (22-30); CHLORIDE 101 mmol/L (98-107); CREATINE KINASE 230 U/L (30-135); GLUCOSE 102 mg/dL (75-110); POTASSIUM 4.7 mmol/L (3.6-5.0)
[2019-05-25 01:37] LABS: CREATINE KINASE MB 2.05 ng/mL (<4.55)
[2019-05-25 01:40] LABS: TROPONIN I < 0.012 ng/mL
[2019-05-25] MEDS ORDERED: NORMAL SALINE 1000 ML 1,000 ML IV PRN (01:48)
[2019-05-25] MEDS ORDERED: SUCRALFATE 1 GM TABLET PO ONE (01:49)
--- NOTE | 2019-05-25 01:56 | RADIOLOGY REPORT (SQ) ---
EXAM DESCRIPTION: RadLex: CT HEAD WITHOUT IV CONTRAST CLINICAL HISTORY: 43 years Female; TRAUMA TECHNIQUE: Noncontrast CT head. All CT scans at this facility use dose modulation, iterative reconstruction, and/or weight based dosing when appropriate to reduce radiation dose to as low as reasonably achievable. COMPARISON: CT 07/19/2016 FINDINGS: Wesley matter, white matter, ventricles, and cisterns are within normal limits. No acute hemorrhage or mass effect. Visualized portions of paranasal sinuses and mastoids are clear. Visualized portions of the calvarium are within normal limits. IMPRESSION: 1. No acute intracranial findings.
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
[2019-05-25] MEDS ORDERED: PROMETHAZINE HCL 25 MG TABLET PO ONE (03:39)
[2019-05-25] MEDS ORDERED: PROMETHAZINE HCL INJ 25 MG/1 ML VIAL IV PRN (04:04)
[2019-05-25] MEDS ORDERED: RINGERS SOLUTION,LACTATED 1,000 ML IV PRN (04:04)
[2019-05-25] MEDS ORDERED: HYDROMORPHONE HCL INJ/PF 2 MG/ML AMPULE IV PRN ×3 (04:12→04:25)
[2019-05-25] MEDS ORDERED: ACETAMINOPHEN 650 MG SUPP.RECT PR PRN (04:12)
[2019-05-25 05:27] LABS: APPEARANCE,URINE CLEAR; BILIRUBIN,URINE NEGATIVE (NEGATIVE); CALCIUM OXALATE CRYSTALS,URINE MODERATE /HPF; COLOR,URINE AMBER; GLUCOSE, URINE NEGATIVE (NEGATIVE); KETONES,URINE NEGATIVE (NEGATIVE); LEUKOCYTE ESTERASE,URINE NEGATIVE (NEGATIVE); NITRITE,URINE POSITIVE (NEGATIVE); PROTEIN,URINE NEGATIVE (NEGATIVE); URINE SPECIFIC GRAVITY 1.014
[2019-05-25] MEDS: HYDROMORPHONE HCL INJ/PF 2 MG/ML AMPULE IV PRN ×2 (07:02→10:26)
--- NOTE | 2019-05-25 09:28 | EKG REPORT ---
SEVERITY:- NORMAL ECG - SINUS RHYTHM : Confirmed by: Sherry Bartlett MD 25-May-2019 09:27:56
[2019-05-25] MEDS ORDERED: ONDANSETRON HCL INJ/PF 4 MG/2 ML SDV IV ONE (09:58)
[2019-05-25] MEDS ORDERED: PANTOPRAZOLE SODIUM 40 MG VIAL IV SCH (10:00)
[2019-05-25 10:53] VITALS: BP 109/91
== END 2019-05-25 10:45 | disposition short-term general hospital (02) ==
LOC: ER 22:30
DX: K92.0 Hematemesis (principal); R55 Syncope and collapse; R10.9 Unspecified abdominal pain; S09.90XA Unspecified injury of head, initial encounter; W18.39XA Other fall on same level, initial encounter; Y92.238 Other place in hospital as the place of occurrence of the external cause; G89.29 Other chronic pain; E03.9 Hypothyroidism, unspecified; I10 Essential (primary) hypertension; Z98.84 Bariatric surgery status; Z88.2 Allergy status to sulfonamides; Z90.49 Acquired absence of other specified parts of digestive tract; Z90.710 Acquired absence of both cervix and uterus
CPT/HCPCS: 93005; 86900; 86901; 36415; 82553; 86850; 82550; 85025; 80053; 81001; 84484; 70450; 93010; J1170; S0164; J2405; J7030

== ENCOUNTER → 2019-08-13 | Outpatient (CLI) | payer OTHER ==
[2019-08-13 11:13] LABS: HEMATOCRIT 44.6 % (36.0-47.0); MEAN CORPUSCULAR HEMOGLOBIN 32.3 pg (27.0-33.4); MEAN CORPUSCULAR HGB CONC 33.7 g/dL (32.0-36.0); MEAN CORPUSCULAR VOLUME 96 fl (80-97); PLATELET COUNT 189 10^3/uL (150-450); RED BLOOD COUNT 4.65 10^6/uL (3.72-5.28); WHITE BLOOD COUNT 5.3 10^3/uL (4.0-10.5)
[2019-08-13 11:44] LABS: ALBUMIN 5.3 g/dL (3.5-5.0); ALKALINE PHOSPHATASE 53 U/L (38-126); ANION GAP 13 (5-19); ASPARTATE AMINO TRANSFERASE 39 U/L (14-36); BILIRUBIN,DIRECT 0.2 mg/dL (0.0-0.4); BILIRUBIN,TOTAL 0.5 mg/dL (0.2-1.3); BLOOD UREA NITROGEN 11 mg/dL (7-20); CALCIUM 10.1 mg/dL (8.4-10.2); CARBON DIOXIDE 27 mmol/L (22-30); CHLORIDE 100 mmol/L (98-107); GLUCOSE 90 mg/dL (75-110); POTASSIUM 4.6 mmol/L (3.6-5.0); TOTAL PROTEIN 8.6 g/dL (6.3-8.2)
== END ==
LOC: OD 09:48
PROVIDERS: ATTEND Obstetrics & Gynecology
DX: Z13.0 Encounter for screening for diseases of the blood and blood-forming organs and certain disorders involving the immune mechanism (principal); Z13.1 Encounter for screening for diabetes mellitus; Z13.29 Encounter for screening for other suspected endocrine disorder
CPT/HCPCS: 36415; 80053; 84443; 85027

== ENCOUNTER → 2019-08-21 | Outpatient (CLI) | payer OTHER | LOC: OD 13:33 | PROVIDERS: ATTEND Obstetrics & Gynecology | DX: E89.0 Postprocedural hypothyroidism (principal) | CPT/HCPCS: 36415; 84443 ==

== ENCOUNTER → 2019-09-15 | Outpatient (CLI) | payer OTHER ==
[2019-09-15 17:54] LABS: HEMATOCRIT 38.1 % (36.0-47.0); MEAN CORPUSCULAR HEMOGLOBIN 32.1 pg (27.0-33.4); MEAN CORPUSCULAR HGB CONC 34.1 g/dL (32.0-36.0); MEAN CORPUSCULAR VOLUME 94 fl (80-97); PLATELET COUNT 343 10^3/uL (150-450); RED BLOOD COUNT 4.05 10^6/uL (3.72-5.28); RED CELL DISTRIBUTION WIDTH 13.4 % (11.5-14.0); WHITE BLOOD COUNT 4.9 10^3/uL (4.0-10.5)
[2019-09-15 18:09] LABS: ALBUMIN 4.7 g/dL (3.5-5.0); ALKALINE PHOSPHATASE 62 U/L (38-126); ANION GAP 11 (5-19); ASPARTATE AMINO TRANSFERASE 29 U/L (14-36); BILIRUBIN,DIRECT 0.2 mg/dL (0.0-0.4); BILIRUBIN,TOTAL 0.6 mg/dL (0.2-1.3); BLOOD UREA NITROGEN 15 mg/dL (7-20); CALCIUM 8.5 mg/dL (8.4-10.2); CARBON DIOXIDE 28 mmol/L (22-30); CHLORIDE 101 mmol/L (98-107); GLUCOSE 77 mg/dL (75-110); POTASSIUM 4.4 mmol/L (3.6-5.0); TOTAL PROTEIN 7.8 g/dL (6.3-8.2)
== END ==
LOC: OD 16:52
PROVIDERS: ATTEND Obstetrics & Gynecology
DX: E03.9 Hypothyroidism, unspecified (principal); E20.9 Hypoparathyroidism, unspecified; Z98.0 Intestinal bypass and anastomosis status
CPT/HCPCS: 36415; 80053; 84443; 85027

== ENCOUNTER → 2019-10-27 | Outpatient (CLI) | payer OTHER ==
[2019-10-27 15:46] LABS: ALBUMIN 4.5 g/dL (3.5-5.0); ALKALINE PHOSPHATASE 39 U/L (38-126); ANION GAP 10 (5-19); ASPARTATE AMINO TRANSFERASE 24 U/L (14-36); BILIRUBIN,TOTAL 0.4 mg/dL (0.2-1.3); BLOOD UREA NITROGEN 14 mg/dL (7-20); CALCIUM 8.6 mg/dL (8.4-10.2); CARBON DIOXIDE 26 mmol/L (22-30); CHLORIDE 105 mmol/L (98-107); GLUCOSE 59 mg/dL (75-110); TOTAL PROTEIN 7.3 g/dL (6.3-8.2)
== END ==
LOC: OD 14:02
PROVIDERS: ATTEND Obstetrics & Gynecology
DX: Z13.29 Encounter for screening for other suspected endocrine disorder (principal)
CPT/HCPCS: 36415; 80053; 84443

== ENCOUNTER → 2019-12-01 | Outpatient (CLI) | payer OTHER ==
[2019-12-01 15:57] LABS: ALBUMIN 4.1 g/dL (3.5-5.0); ALKALINE PHOSPHATASE 34 U/L (38-126); ANION GAP 12 (5-19); ASPARTATE AMINO TRANSFERASE 29 U/L (14-36); BILIRUBIN,DIRECT 0.3 mg/dL (0.0-0.4); BILIRUBIN,TOTAL 0.4 mg/dL (0.2-1.3); BLOOD UREA NITROGEN 12 mg/dL (7-20); CALCIUM 8.2 mg/dL (8.4-10.2); CARBON DIOXIDE 25 mmol/L (22-30); CHLORIDE 104 mmol/L (98-107); GLUCOSE 80 mg/dL (75-110); POTASSIUM 3.8 mmol/L (3.6-5.0); TOTAL PROTEIN 6.8 g/dL (6.3-8.2)
== END ==
LOC: OD 13:40
PROVIDERS: ATTEND Obstetrics & Gynecology
DX: Z13.29 Encounter for screening for other suspected endocrine disorder (principal); Z13.1 Encounter for screening for diabetes mellitus
CPT/HCPCS: 36415; 80053; 84443

== ENCOUNTER 2019-12-26 13:48 | Emergency (ER) | payer OTHER ==
[2019-12-26] MEDS ORDERED: ONDANSETRON HCL INJ/PF 4 MG/2 ML SDV IV ONE ×2 (14:13→20:27)
[2019-12-26] MEDS ORDERED: NORMAL SALINE 1000 ML 1,000 ML IV ONE (14:13)
--- NOTE | 2019-12-26 14:46 | ER Document Report ---
ED General - General TRAVEL OUTSIDE OF THE [place] IN LAST 30 DAYS: No <LUISA QUEEN - Last Filed: 12/26/19 17:10> - General TRAVEL OUTSIDE OF THE [place] IN LAST 30 DAYS: No <MORIAH ANDREA Joon - Last Filed: 12/26/19 23:47> - General Chief Complaint: Fever Stated Complaint: FEVER,NAUSEA Time Seen by Provider: 12/26/19 13:54 Primary Care Provider: ERIN LUGO MD [Primary Care Provider] - Follow up as needed Notes: CHIEF COMPLAINT: Fever body aches sore throat for 3 days HPI: 44-year-old female presenting to the emergency department with multiple complaints. Patient states for the last 3 days she first developed generalized body ache and high fever at home. Patient states that she has a sore throat like she is "swallowing glass". No voice change. Has developed a cough with some shortness of breath. Patient complains of a generalized headache with the fevers. No posterior neck pain. Patient states she has had nausea vomiting and diarrhea. [facility] as her is active duty and had Covid testing does not have a result. 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 Also states she is being worked up currently for rheumatoid or lupus. Patient states that she does have chronic pain issues and is on fentanyl patch ROS: See HPI - all other systems were reviewed and are otherwise negative Constitutional: Positive fever Eyes: no drainage, no blurred vision ENT: no runny nose, positive sore throat Cardiovascular: no chest pain Resp: Positive SOB, positive cough GI: Positive vomiting, positive diarrhea, no abdominal pain : no dysuria Integumentary: no rash Allergy: no hives Musculoskeletal: no extremity pain or swelling Neurological: no numbness/tingling, no weakness, positive headache MEDICATIONS: I agree with the patient medications as charted by the RN. ALLERGIES: I agree with the allergies as charted by the RN. PAST MEDICAL HISTORY/PAST SURGICAL HISTORY: Reviewed and agree as charted by RN. SOCIAL HISTORY: Reviewed and agree as charted by RN. FAMILY HISTORY: No significant familial comorbid conditions directly related to patient complaint EXAM: Reviewed vital signs as charted by RN. CONSTITUTIONAL: Alert and oriented and responds appropriately to questions. Well-appearing; well-nourished, mild distress secondary to discomfort HEAD: Normocephalic; atraumatic EYES: PERRL; Conjunctivae clear, sclerae non-icteric ENT: normal nose; no rhinorrhea; slightly dry mucous membranes; pharynx without lesions noted, no uvula edema or deviation, no tonsillar hypertrophy, phonation normal NECK: Supple without meningismus; non-tender; no cervical lymphadenopathy, no masses CARD: RRR; no murmurs, no clicks, no rubs, no gallops; symmetric distal pulses RESP: Normal chest excursion without splinting or tachypnea; breath sounds clear and equal bilaterally; no wheezes, no rhonchi, no rales, pulse oximetry initially 80% on room air, improved to 99% on 2 L nasal cannula. While I was in the room I did remove the patient from her oxygen while speaking with her and she maintained her pulse oximetry of 98% on room air ABD/GI: Normal bowel sounds; non-distended; soft, non-tender, no rebound, no guarding; no palpable organomegaly or masses. BACK: The back appears normal and is non-tender to palpation, there is no CVA tenderness EXT: Normal ROM in all joints; non-tender to palpation; no cyanosis, no effusions, no edema SKIN: Normal color for age and race; warm; dry; good turgor; no acute lesions noted NEURO: Moves all extremities equally; Motor and sensory function intact PSYCH: The patient's mood and manner are appropriate. Grooming and personal hygiene are appropriate. MDM: 44-year-old female presenting with flulike symptoms for 3 days. Does report a generalized headache. Was noted to have a fever of 103 here. Patient had coronavirus testing yesterday without a result. Will obtain chest x-ray, influenza and strep, screening labs, urinalysis. She has no nuchal rigidity at this time definitively suggesting meningitis. (LUISA QUEEN) - Related Data Allergies/Adverse Reactions: prochlorperazine edisylate [From Compazine] Allergy (Severe, Verified 12/26/19 16:20) RAPID HEART RATE, SWEATING, AMS prochlorperazine maleate [From Compazine] Allergy (Severe, Verified 12/26/19 16:20) RAPID HEART RATE, SWEATING,AMS Sulfa (Sulfonamide Antibiotics) Allergy (Severe, Verified 12/26/19 16:20) Anaphylaxis divalproex sodium [From Depakote] Allergy (Verified 12/26/19 16:20) RAPID HEART RATE,EXASPERATED DISEASE SYMPTOMS morphine [Morphine] Adverse Reaction (Intermediate, Verified 12/26/19 16:20) Hives metoclopramide HCl [From Reglan] Adverse Reaction (Mild, Verified 12/26/19 16:20) HEART RATE RAPID, SWEATING, AMS levofloxacin [From Levaquin] Adverse Reaction (Unknown, Verified 12/26/19 16:20) Past Medical History - Social History Family History: Reviewed & Not Pertinent - Past Medical History Cardiac Medical History: Reports: Hx Hypertension Denies: Hx Coronary Artery Disease, Hx Heart Attack - 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 Denies: Hx Cerebrovascular Accident Endocrine Medical History: Reports: Hx Hypothyroidism Renal/ Medical History: Denies: Hx Peritoneal Dialysis GI Medical History: Reports: Hx Gastritis, Hx Gastroesophageal Reflux Disease Musculoskeletal Medical History: Denies Hx Arthritis - Tendonitis and bursitis in L shoulder , Reports Hx Musculoskeletal Deformity, Reports Hx Musculoskeletal Trauma Psychiatric Medical History: Reports: Hx Anxiety, Hx Attention Deficit Hyperactivity Disorder, Hx Depression Past Surgical History: Reports: Hx Abdominal Surgery - bowel resection, Hx Cholecystectomy, Hx Hysterectomy, Hx Orthopedic Surgery - back, Hx Thyroid Surgery, Hx Tonsillectomy - Immunizations Immunizations up to date: Yes Hx Diphtheria, Pertussis, Tetanus Vaccination: No Hx Pneumococcal Vaccination: 07/01/12 <LUISA QUEEN - Last Filed: 12/26/19 17:10> - Social History Smoking Status: Never Smoker Family History: Reviewed & Not Pertinent <MORIAH ANDREA - Last Filed: 12/26/19 23:47> Physical Exam - Vital signs Vitals: Temp Resp Pulse Ox 98.3 F 11 L 91 L 12/26/19 13:53 12/26/19 13:53 12/26/19 13:53 Course - Laboratory Result Diagrams: 12/26/19 14:12 12/26/19 14:12 <LUISA QUEEN - Last Filed: 12/26/19 17:10> - Laboratory Result Diagrams: 12/26/19 14:12 12/26/19 14:12 <MORIAH ANDREA - Last Filed: 12/26/19 23:47> - Re-evaluation Re-evalutation: 12/26/19 15:57 case discussed with attending Dr. Menard. Patient lab work does not show any acute abnormalities. Her chest x-ray is negative for acute findings. Urine negative for acute findings. Flu and strep both negative. I went back and reassessed the patient she complains of continued headache and generalized myalgia. Patient was able to put her chin on her chest, fully range the head and neck although she has some restriction rotating to the left which she states is secondary to spinal issues that she is already having worked up by neurosurgery in the cervical spine. She does not have any nuchal rigidity to suggest meningitis at this time. Will give patient Toradol. 12/26/19 16:36 Patient remains tearful at this time complaining of headache and body ache. I spoken with her at length about her results. She has hypothyroid, not in thyroid storm. Her white count is normal. Her chest x-ray is normal. Her urine is normal. Her flu swab is negative. Her strep test is negative. Patient is concerned about the headache. I discussed lumbar puncture with the patient given her continuing headache and complaints. Patient states she has had a lumbar fusion in the past. I have spoken with the emg technician, the radiologist has left for the day they will call the on-call providers regarding the need for the lumbar puncture. I have ordered the CSF in the computer. I have added on PT/INR, patient is not on blood thinners at this time 12/26/19 16:58 I spoke with the patient again as well as with her per her request. We discussed the patient's clinical course, lab and x-ray results. We discussed t he necessity of lumbar puncture given her continuing headache with the fever. They are aware that if the lumbar puncture shows meningitis that she will need admission. They are aware that if the lumbar puncture is negative she will likely be discharged home as this is likely a viral etiology and that she should isolate at home pending her cultures and blood cultures. 12/26/19 17:10 report to Moriah Andrea, [employer] pending will follow and disposition (LUISA QUEEN) 12/26/19 patient's lumbar puncture results discussed with my attending physician, Dr. Menard. Patient was reevaluated continues to have no nuchal rigidity. Patient was sent for a head CT as she became worried that she may have a "clot in her brain". Patient's head CT was negative. Patient continues to have drug-seeking behaviors. As I entered the room to discuss all of her test results she was writhing around and screaming out in pain. After I let her know what all of her results were she asked if her could be contacted via phone. She then immediately calmed down and was asking appropriate questions. She is currently supposed to be on quarantine pending her Covid testing that was done by the [facility]. She will be discharged home at this time and was encouraged to continue self quarantining and return to the emergency department with new or worsening symptoms. (MORIAH ANDREA) - Vital Signs Vital signs: Temp Pulse Resp BP Pulse Ox 98.3 F 10 L 143/132 H 98 12/26/19 19:04 12/26/19 21:01 12/26/19 20:30 12/26/19 21:01 - Laboratory Laboratory results interpreted by me: 12/26/19 12/26/19 14:12 14:12 Carbon Dioxide 31 H Alkaline Phosphatase 34 L TSH 32.40 H Discharge <LUISA QUEEN - Last Filed: 12/26/19 17:10> <MORIAH ANDREA - Last Filed: 12/26/19 23:47> - Discharge Clinical Impression: Viral illness Fever Qualifiers: Fever type: unspecified Qualified Code(s): R50.9 - Fever, unspecified Headache Qualifiers: Headache type: unspecified Headache chronicity pattern: unspecified pattern Intractability: not intractable Qualified Code(s): R51 - Headache Condition: Stable Disposition: HOME, SELF-CARE Additional Instructions: Your work-up today was reassuring. Please keep all appointments with your specialist and pain management doctors as we have discussed. Continue to push fluids. Continue to take ibuprofen or Tylenol for any fever or body aches. We are unable to refill any chronic pain medications. Please continue to maintain quarantine status until you hear back from the [facility] regarding your COVID test. Prescriptions: Hydrocodone/Acetaminophen [[place] 5-325 mg Tablet] 1 tab PO Q4H #10 tablet Promethazine HCl [Phenergan 6.25 mg/5 ml Syrup] 5 ml PO ASDIR PRN #120 ml PRN Reason: Referrals: ERIN LUGO MD [Primary Care Provider] - Follow up as needed
[2019-12-26] MEDS ORDERED: HYDROMORPHONE HCL INJ/PF 2 MG/ML AMPULE IV PRN (14:47)
[2019-12-26 14:50] LABS: ABSOLUTE EOSINOPHILS # (AUTO) 0.2 10^3/uL (0.0-0.6); ABSOLUTE LYMPHOCYTES (AUTO) 1.8 10^3/uL (0.5-4.7); ABSOLUTE MONOCYTES (AUTO) 0.2 10^3/uL (0.1-1.4); ABSOLUTE NEUT (AUTO) 3.6 10^3/uL (1.7-8.2); BASOPHILS % (AUTO) 0.4 % (0-2); EOSINOPHILS % (AUTO) 4.2 % (0-6); HEMATOCRIT 38.2 % (36.0-47.0); HEMOGLOBIN 13.2 g/dL (12.0-15.5); LYMPHOCYTES % (AUTO) 30.2 % (13-45); MEAN CORPUSCULAR HEMOGLOBIN 32.4 pg (27.0-33.4); MEAN CORPUSCULAR HGB CONC 34.6 g/dL (32.0-36.0); MEAN CORPUSCULAR VOLUME 94 fl (80-97); MONOCYTES % (AUTO) 3.9 % (3-13); RED BLOOD COUNT 4.07 10^6/uL (3.72-5.28); RED CELL DISTRIBUTION WIDTH 13.2 % (11.5-14.0); SEGMENTED NEUTROPHILS % (AUTO) 61.3 % (42-78); TOTAL CELLS COUNTED % (AUTO) 100 %; WHITE BLOOD COUNT 5.9 10^3/uL (4.0-10.5)
[2019-12-26 15:07] LABS: PLATELET COUNT 163 10^3/uL (150-450)
[2019-12-26 15:09] LABS: ALBUMIN 4.6 g/dL (3.5-5.0); ALKALINE PHOSPHATASE 34 U/L (38-126); ANION GAP 7 (5-19); ASPARTATE AMINO TRANSFERASE 32 U/L (14-36); BILIRUBIN,DIRECT 0.2 mg/dL (0.0-0.4); BILIRUBIN,TOTAL 0.4 mg/dL (0.2-1.3); BLOOD UREA NITROGEN 14 mg/dL (7-20); CALCIUM 8.5 mg/dL (8.4-10.2); CARBON DIOXIDE 31 mmol/L (22-30); CHLORIDE 101 mmol/L (98-107); GLUCOSE 76 mg/dL (75-110); POTASSIUM 3.9 mmol/L (3.6-5.0); TOTAL PROTEIN 7.6 g/dL (6.3-8.2)
--- NOTE | 2019-12-26 15:13 | RADIOLOGY REPORT (SQ) ---
EXAM DESCRIPTION: CHEST SINGLE VIEW IMAGES COMPLETED DATE/TIME: 12/26/2019 3:05 pm REASON FOR STUDY: cough fever COMPARISON: 05/17/2019 EXAM PARAMETERS: NUMBER OF VIEWS: One view. TECHNIQUE: Single frontal radiographic view of the chest acquired. RADIATION DOSE: NA LIMITATIONS: None. FINDINGS: LUNGS AND PLEURA: No opacities, masses or pneumothorax. No pleural effusion. MEDIASTINUM AND HILAR STRUCTURES: No masses. Contour normal. HEART AND VASCULAR STRUCTURES: Heart normal in size. Normal vasculature. BONES: No acute findings. HARDWARE: None in the chest. OTHER: No other significant finding. IMPRESSION: NO ACUTE RADIOGRAPHIC FINDING IN THE CHEST. TECHNICAL DOCUMENTATION: JOB ID: [id number] 2010 [employer]- All Rights Reserved Reading location - IP/workstation name: [email or web address]
[2019-12-26 15:14] LABS: A TYPE INFLUENZA AG NEGATIVE (NEGATIVE); B INFLUENZA AG NEGATIVE (NEGATIVE)
[2019-12-26 15:19] LABS: APPEARANCE,URINE CLEAR; BILIRUBIN,URINE NEGATIVE (NEGATIVE); COLOR,URINE STRAW; GLUCOSE, URINE NEGATIVE (NEGATIVE); KETONES,URINE NEGATIVE (NEGATIVE); LEUKOCYTE ESTERASE,URINE NEGATIVE (NEGATIVE); NITRITE,URINE NEGATIVE (NEGATIVE); PROTEIN,URINE NEGATIVE (NEGATIVE); URINE SPECIFIC GRAVITY 1.004; UROBILINOGEN,URINE NEGATIVE mg/dL (<2.0)
[2019-12-26] MEDS ORDERED: KETOROLAC TROMETHAMINE INJ/PF 30 MG/1 ML SDV IV ONE (15:59)
[2019-12-26 16:43] LABS: INTERNATIONAL RATION (INR) 0.92; PROTHROMBIN TIME 12.3 SEC (11.4-15.4)
[2019-12-26] MEDS ORDERED: HYDROMORPHONE HCL INJ/PF 2 MG/ML AMPULE IV ONE (16:58)
[2019-12-26 17:01] LABS: PARTIAL THROMBOPLASTIN TIME 24.6 SEC (23.5-35.8)
[2019-12-26 19:15] LABS: GLUCOSE,CSF 49 mg/dL (40-70); PROTEIN,CSF 48 mg/dL (12-60)
[2019-12-26 20:03] LABS: APPEARANCE ALL TUBES CLEAR; COLOR ALL TUBES COLORLESS; CSF TUBE NUMBER 1; VOLUME TUBE 1 1.5 CC
[2019-12-26 20:04] LABS: CSF TOTAL VOLUME 4.5 CC; RED BLOOD CELL,CSF 494 /uL (0-10); WHITE BLOOD CELL,CSF 3 /uL (0-5)
[2019-12-26] MEDS ORDERED: DIPHENHYDRAMINE HCL 50 MG/ML VIAL IV ONE (20:27)
[2019-12-26] MEDS ORDERED: ACETAMINOPHEN 325 MG TABLET PO ONE (20:35)
[2019-12-26 21:19] LABS: COLOR ALL TUBES COLORLESS; CSF TUBE NUMBER 4
--- NOTE | 2019-12-26 21:19 | RADIOLOGY REPORT (SQ) ---
EXAM DESCRIPTION: CT HEAD WITHOUT IV CONTRAST COMPLETED DATE/TME: 12/26/2019 20:01 CLINICAL HISTORY: 44 years, Female, worst headache ever COMPARISON: Prior CT head from 05/25/2019. TECHNIQUE: Noncontrast CT head was acquired. Coronal and sagittal reformations were created. Images stored on PACS. All CT scanners at this facility use dose modulation, iterative reconstruction, and/or weight based dosing when appropriate to reduce radiation dose to as low as reasonably achievable (ALARA). [facility]: Dose Right [facility]: CareDose [facility]: Dose Right [facility]: Teradose 4D [facility]: [employer] LIMITATIONS: None. FINDINGS: Brain parenchyma is normal in attenuation. No acute intracranial hemorrhage, mass effect, or extra-axial fluid is seen. Ventricles and sulcal spaces are normal in size and configuration. Globes and orbits show no acute abnormality. Paranasal sinuses and right mastoid air cells are clear. The left mastoid air cells are under aerated, similar to the previous exams. No depressed skull fractures. IMPRESSION: No acute intracranial abnormality. TECHNICAL DOCUMENTATION: Quality ID # 436: Final reports with documentation of one or more dose reduction techniques (e.g., Automated exposure control, adjustment of the mA and/or kV according to patient size, use of iterative reconstruction technique) copyright 2011 [employer]- All Rights Reserved
[2019-12-26 21:20] LABS: APPEARANCE ALL TUBES CLEAR; CSF TOTAL VOLUME 4.5 CC; RED BLOOD CELL,CSF 323 /uL (0-10); VOLUME TUBE 1 1.5 CC
[2019-12-26 21:21] LABS: WHITE BLOOD CELL,CSF 3 /uL (0-5)
[2019-12-26 21:54] VITALS: BP 143/132
[2019-12-26] MEDS ORDERED: HYDROCODONE/ACETAMINOPHEN 5-325 MG (6 TAB/ER DISP) PO PRN (22:37)
--- NOTE | 2020-01-16 10:06 | RADIOLOGY REPORT (SQ) ---
EXAM DESCRIPTION: LUMBAR PUNCTURE IMAGES COMPLETED DATE/TIME: 12/26/2019 7:12 pm REASON FOR STUDY: headache, fever, hx lumbar fusion COMPARISON: CT brain on 12/26/19. FLUOROSCOPY TIME: 12 seconds 1 images saved to PACS. TECHNIQUE: Fluoroscopic guided lumbar puncture with opening and closing pressures. LIMITATIONS: None. PROCEDURE: After written consent and assessment were obtained, the patient was brought into the [facility] roscopy room and placed prone on the table. The patient's lower back was prepped in a sterile fashion and an entry site was selected under live fluoroscopic guidance. The entry site was anesthetized wit h 1% lidocaine. A 20 gauge needle was advanced through the skin and into the thecal sac at the level of L 3 -L 4 . An opening pressure of 30 units was obtained. After approximately 5 ml of CSF was drain ed, a closing pressure of 28 units was obtained. The needle was removed and a sterile bandage was albaro mckayla of the site. Specimens were sent to the lab for testing. A fluoroscopic spot image was saved to [facility] confirming level access. FINDINGS: Clear CSF IMPRESSION: Lumbar puncture under fluoroscopy. No immediate complication. COMMENT: Patient medication list reviewed: Yes- Quality ID# [id number]:Eligible professional attests to doc umenting in the medical record they obtained, updated, or reviewed the patient's current medications. Quality ID 145: Final reports for procedures using fluoroscopy that document radiation exposure indic es, or exposure time and number of fluorographic images (if radiation exposure indices are not availa ble) TECHNICAL DOCUMENTATION: Job ID: [id number] 2010 [employer]- All Rights Reserved Reading location - IP/workstation name: [email or web address] [place]
== END 2019-12-26 23:16 | disposition home or self-care (01) ==
LOC: ER 13:48
DX: B34.9 Viral infection, unspecified (principal); R51 Headache; R50.9 Fever, unspecified; J02.9 Acute pharyngitis, unspecified; R05 Cough; R06.02 Shortness of breath; R11.2 Nausea with vomiting, unspecified; R19.7 Diarrhea, unspecified; M79.10 Myalgia, unspecified site; E89.0 Postprocedural hypothyroidism; I10 Essential (primary) hypertension; G89.29 Other chronic pain; Z79.891 Long term (current) use of opiate analgesic; Z87.01 Personal history of pneumonia (recurrent); Z88.8 Allergy status to other drugs, medicaments and biological substances; Z88.2 Allergy status to sulfonamides; Z98.1 Arthrodesis status
CPT/HCPCS: 96376; 99284; 96361; 96374; 96375; 36415; 87040; 87070 ×2; 87205; 87880; 87252; 83690; 84443; 85025; 85610; 85730; 89050; 82945; 84157; 80053; 81001; 87804; 71045; 62328; 70450; J1200; J1885; J1170; J2405; J7030

== ENCOUNTER → 2020-02-11 | Outpatient (CLI) | payer OTHER ==
[2020-02-11 14:56] LABS: ALBUMIN 4.5 g/dL (3.5-5.0); ALKALINE PHOSPHATASE 38 U/L (38-126); ANION GAP 8 (5-19); ASPARTATE AMINO TRANSFERASE 33 U/L (14-36); BILIRUBIN,DIRECT 0.1 mg/dL (0.0-0.4); BILIRUBIN,TOTAL 0.4 mg/dL (0.2-1.3); BLOOD UREA NITROGEN 15 mg/dL (7-20); CARBON DIOXIDE 28 mmol/L (22-30); CHLORIDE 103 mmol/L (98-107); POTASSIUM 3.8 mmol/L (3.6-5.0); TOTAL PROTEIN 6.9 g/dL (6.3-8.2)
[2020-02-11 15:04] LABS: GLUCOSE 64 mg/dL (75-110)
== END ==
LOC: OD 13:51
PROVIDERS: ATTEND Obstetrics & Gynecology
DX: Z13.1 Encounter for screening for diabetes mellitus (principal); Z13.29 Encounter for screening for other suspected endocrine disorder
CPT/HCPCS: 36415; 80053; 84443

== ENCOUNTER → 2020-03-04 | Outpatient (CLI) | payer OTHER ==
[2020-03-04 13:13] LABS: ALBUMIN 4.8 g/dL (3.5-5.0); ALKALINE PHOSPHATASE 45 U/L (38-126); ANION GAP 9 (5-19); ASPARTATE AMINO TRANSFERASE 23 U/L (14-36); BILIRUBIN,TOTAL 0.5 mg/dL (0.2-1.3); BLOOD UREA NITROGEN 20 mg/dL (7-20); CALCIUM 8.9 mg/dL (8.4-10.2); CARBON DIOXIDE 28 mmol/L (22-30); CHLORIDE 103 mmol/L (98-107); GLUCOSE 123 mg/dL (75-110); POTASSIUM 3.7 mmol/L (3.6-5.0); TOTAL PROTEIN 7.6 g/dL (6.3-8.2)
== END ==
LOC: OD 12:01
PROVIDERS: ATTEND Obstetrics & Gynecology
DX: Z13.29 Encounter for screening for other suspected endocrine disorder (principal); Z13.1 Encounter for screening for diabetes mellitus
CPT/HCPCS: 36415; 80053; 84443

== ENCOUNTER → 2020-10-14 | Outpatient (CLI) | payer OTHER ==
[2020-10-14 13:30] LABS: ALBUMIN 4.4 g/dL (3.5-5.0); ALKALINE PHOSPHATASE 34 U/L (38-126); ANION GAP 9 (5-19); ASPARTATE AMINO TRANSFERASE 25 U/L (14-36); BILIRUBIN,DIRECT 0.2 mg/dL (0.0-0.4); BILIRUBIN,TOTAL 0.5 mg/dL (0.2-1.3); BLOOD UREA NITROGEN 14 mg/dL (7-20); CALCIUM 9.2 mg/dL (8.4-10.2); CARBON DIOXIDE 31 mmol/L (22-30); CHLORIDE 102 mmol/L (98-107); GLUCOSE 93 mg/dL (75-110); POTASSIUM 4.1 mmol/L (3.6-5.0); TOTAL PROTEIN 7.1 g/dL (6.3-8.2)
== END ==
LOC: OD 12:21
PROVIDERS: ATTEND Obstetrics & Gynecology
DX: Z13.29 Encounter for screening for other suspected endocrine disorder (principal); Z13.1 Encounter for screening for diabetes mellitus
CPT/HCPCS: 36415; 80053; 84443